=== PATIENT | male | born 1985 | race Caucasian/White ===

== ENCOUNTER 2023-10-20 10:09 | Outpatient (AMB) | payer OTHER, SELFPAY ==
--- NOTE | 2023-10-20 10:13 | AM.OFFWIN_ITS ---
Intake Vital Signs 10/20/23 10:18 Height 6 ft 2 in Weight 332 lb 4 oz BMI 42.7 BP 130/84 Blood Pressure Location Lt brachial Position Sitting Pulse 85 Pulse Source Pulse Oximeter Pulse Oximetry (%) 95 Oxygen Delivery Method Room Air Intake Visit Reasons: [place] eye, covid + 10/18/23 Intake Note: Patient is here today for pink eye in both eyes and covid positive on 10/18/23. Symptoms are sore throats, cough, congestion, running nose. No fever, chills or body aches. OTC tired with little relief. Patient Tobacco Use Status: Never used Tobacco Behavioral Health Aide Required: No Leader Writer: Not Required per policy Accompanied by: Self / Same As Patient Allergies No Known Allergies Allergy (Verified 10/20/23 10:25) Medication List - Last Reconciled 10/20/23 [facility] No Known Home Meds Do you need a note to return to daycare/school/sports/work: No HPI HPI Comments History of Present Illness Details Here today with complaints redness bilat eyes in the setting of COVID. Reports that tested positive for COVID yesterday. His symptoms include severe nasal congestion. Yesterday's started with the redness in his eyes associated with mucopurulent drainage. The eyes are not itchy. He reports that the drainage does make his vision blurry however no other visual disturbances. He feels so congested like the discharge is coming out of his sinuses. He did slade at the eyes with an bsec-qop-fcmiigg red eye eye drop. Denies any high-risk chronic medical conditions [facility] Social History Patient Tobacco Use Status: Never used Tobacco Review of Systems Const All systems reviewed & are unremarkable except as noted in HPI and below Physical Exam Vital Signs: Last Vital Signs Pulse 85 10/20/23 10:18 BP 130/84 10/20/23 10:18 Pulse Ox 95 10/20/23 10:18 Oxygen Delivery Method Room Air 10/20/23 10:18 BMI result Body Mass Index 42.7 Const Other: Awake alert oriented, mildly ill-appearing however in no acute distress Conjunctiva diffusely injected bilat, no photophobia, mucopurulent drainage bilat Nasal congestion Speaking in full sentences Assessment & Plan Assessment & Plan (1) COVID-19: Code(s): U07.1 - COVID-19 Plan: Isolation and Precautions for People with COVID-19 Updated January 19, 2023 If you were exposed to COVID-19, you should start taking precautions. Isolation and Exposure If you have COVID-19, you can spread the virus to others. There are precautions you can take to prevent spreading it to others: isolation, masking, and avoiding contact with people who are at high risk of getting very sick. Isolation is used to separate people with confirmed or suspected COVID-19 from those without COVID-19. These recommendations do not change based on COVID-19 hospital admission levels. If you have COVID-19, also see additional information on treatments that may be available to you. This information is intended for a general audience. Healthcare professionals should see Ending Isolation and Precautions for People with COVID-19. This [facility] guidance is meant to supplement?not replace?any federal, state, local, territorial, or [place] health and safety laws, rules, and regulations. For Healthcare Professionals: Ending Isolation and Precautions for People with COVID-19 When to Isolate Regardless of vaccination status, you should isolate from others when you have COVID-19. You should also isolate if you are sick and suspect that you have COVID-19 but do not yet have test results. If your results are positive, follow the full isolation recommendations below. If your results are negative, you can end your isolation. IF YOU TEST Negative You can end your isolation IF YOU TEST Positive Follow the full isolation recommendations below When you have COVID-19, isolation is counted in days, as follows: If you had no symptoms Day 0 is the day you were tested (not the day you received your positive test result) Day 1 is the first full day following the day you were tested If you develop symptoms within 10 days of when you were tested, the clock restarts at day 0 on the day of symptom onset If you had symptoms Day 0 of isolation is the day of symptom onset, regardless of when you tested positive Day 1 is the first full day after the day your symptoms started Isolation If you test positive for COVID-19, stay home for at least 5 days and isolate from others in your home. You are likely most infectious during these first 5 days. Wear a high-quality mask if you must be around others at home and in public. Do not go places where you are unable to wear a mask. For travel guidance, see CDC?s Travel webpage. Do not travel. Stay home and separate from others as much as possible. Use a separate bathroom, if possible. Take steps to improve ventilation at home, if possible. Don?t share personal household items, like cups, towels, and utensils. Monitor your symptoms. If you have an emergency warning sign (like trouble breathing), seek emergency medical care immediately. Learn more about what to do if you have COVID-19. Ending Isolation End isolation based on how serious your COVID-19 symptoms were. Loss of taste and smell may persist for weeks or months after recovery and need not delay the end of isolation. If you had no symptoms You may end isolation after day 5. If you had symptoms and: Your symptoms are improving You may end isolation after day 5 if: You are fever-free for 24 hours (without the use of fever-reducing medication). Your symptoms are not improving Continue to isolate until: You are fever-free for 24 hours (without the use of fever-reducing medication). Your symptoms are improving. 1 If you had symptoms and had: Moderate illness (you experienced shortness of breath or had difficulty breathing) You need to isolate through day 10. Severe illness (you were hospitalized) or have a weakened immune system You need to isolate through day 10. Consult your doctor before ending isolation. Ending isolation without a viral test may not be an option for you. If you are unsure if your symptoms are moderate or severe or if you have a weakened immune system, talk to a healthcare provider for further guidance. Regardless of when you end isolation Until at least day 11: Avoid being around people who are more likely to get very sick from COVID-19. Remember to wear a high-quality mask when indoors around others at home and in public. Do not go places where you are unable to wear a mask until you are able to discontinue masking (see below). For travel guidance, see CDC?s Travel webpage. Removing Your Mask After you have ended isolation, when you are feeling better (no fever without th e use of fever-reducing medications and symptoms improving), Wear your mask through day 10. OR If you have access to antigen tests, you should consider using them. With two sequential negative tests 48 hours apart, you may remove your mask sooner than day 10. Note: If your antigen test results1 are positive, you may still be infectious. You should continue wearing a mask and wait at least 48 hours before taking another test. Continue taking antigen tests at least 48 hours apart until you have two sequential negative results. This may mean you need to continue wearing a mask and testing beyond day 10. After you have ended isolation, if your COVID-19 symptoms recur or worsen, restart your isolation at day 0. Talk to a healthcare provider if you have questions about your symptoms or when to end isolation. [1] As noted in the Food and Drug Administration labeling for authorized vbgt-upu-tgtxcqx antigen tests, negative test results do not rule out SARS-CoV-2 infection and should not be used as the sole basis for treatment or patient management decisions, including infection control decisions. Last Updated January 19, 2023 (2) Conjunctivitis due to COVID-19: Code(s): U07.1 - COVID-19; B30.8 - Other viral conjunctivitis Plan: . Medications: New azithromycin For 250 mg dose pack: take 500 mg today (day 1), then 250 mg for 4 days (days 2-5) PO 6 tabs 0RF 5 days polymyxin B sulf-trimethoprim 10,000 unit- 1 mg/mL APPLY TO BOTH EYES while awake; do not exceed 6 doses in 24 hours 1 drp ophthalmic (eye) QID 10 mL 0RF 5 days Coding Level of Care Code Est Pt Level 4 (73702) Diagnoses COVID-19 U07.1 Conjunctivitis due to COVID-19 U07.1; B30.8 Time Spent (min) 30
[2023-10-20 10:18] VITALS: BP 130/84; PULSE 85; O2SAT 95; BMI 42.7
== END 2023-10-20 14:16 | disposition home or self-care (01) ==
PROVIDERS: Visit Provider Nurse Practitioner Family
DX: U07.1 COVID-19 (principal); B30.8 Other viral conjunctivitis
CPT/HCPCS: 99214

== ENCOUNTER 2024-02-01 15:26 | Outpatient (AMB) | payer OTHER, SELFPAY ==
[2024-02-01 15:48] VITALS: BP 124/74; PULSE 66; O2SAT 97; BMI 41.3
--- NOTE | 2024-02-01 15:48 | A.OFFPC_ITS ---
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 Allergies No Known Allergies Allergy (Verified 02/01/24 15:51) Tobacco use date assessed: 02/01/24 Dental Screening Dental Screen Date: 02/01/24 Did you have a dental visit in the last 12 months?: Yes Did you have a dental problem in the last 6 months where you did not have access to dental care?: No Was dental information given to patient?: Patient has dentist HPI Continuous Improvement Director Request PE HPI Details New patient Prior PCP:? No pcp in years Last office visit/CPE: Acute issue(s): ?Sleep Apnea -Notes fatigue, daytime sleepiness. -Also notes holding his breath while he sleeps. Cough -A cough the past couple days. PMHx: Difficulty concentrating PFSH Medical History (Updated 02/01/24 @ 16:14 by Donal Smith) Acute eczema Surgical History (Updated 02/01/24 @ 15:55 by Tali Martin CMA) No pertinent past surgical history Family History (Updated 02/01/24 @ 15:56 by Tali Martin CMA) Father Substance abuse in family Social History (Updated 02/01/24 @ 15:58 by Tali Martin CMA) Household Members: Family Both parents involved: No Caregiver staying overnight: No Housing: Apartment Are you a primary pet care assistant to a significant other at home: Yes Do you presently have visiting nurse or other home services: Yes 75 years or older and lives alone: No Alcohol intake: never Patient Tobacco Use Status: Never used Tobacco e-Cigarette/Vaping Use: Never Used Special ladarius needs: No service: No Current occupational status: employed 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 1. Little interest or pleasure in doing things: not at all 2. Feeling down, depressed, or hopeless: not at all 3. Trouble falling or staying asleep, or sleeping too much: not at all 4. Feeling tired or having little energy: more than half the days 5. Poor appetite or overeating: not at all 6. Feeling bad about yourself - or that you are a failure or have let yourself o r your family down: not at all 7. Trouble concentrating on things, such as reading the newspaper or watching television: not at all 8. Moving or speaking so slowly that other people could have noticed. Or the opposite - being so fidgety or restless that you have been moving around a lot more than usual: not at all 9. Thoughts that you would be better off or of hurting yourself in some way: not at all Total score: 2 Depression Screening Interpretation: Negative Depression Screening Done: Yes Source: Developed by Drs. Sabas Barnard, Dayana Chiang, Charles Jonas and colleagues, with an educational salma from [employer]. Thrive Questionnaire Date Thrive assessed: 02/01/24 I am a: Patient What is your living situation today?: I have a steady place to live Within the past 12 months, did the food you bought not last and you didn't have the money to get more?: Never true Within the past 12 months, did you worry whether your food would run out before you got money to buy more?: Never true Do you have trouble paying for medicines?: No Do you have trouble getting transportation to medical appointments?: No Do you have trouble paying your heating and electricity bill?: No Do you have trouble taking care of your child, family member or friend?: No Do you have trouble with day-to-day activities such as bathing, preparing meals, shopping, managing finances, etc.?: No Are you currently unemployed and looking for a job?: No Are you interested in more education?: No THRIVE Score: 0 YOVANY-7 AMB Questionnaire YOVANY-7 Date YOVANY - 7 assessed: 02/01/24 Feeling nervous, anxious, or on edge: 0 = Not at all Not being able to stop or control worryin = Not at all Worrying too much about different things: 0 = Not at all Trouble relaxin = Not at all Being so restless that it is hard to sit still: 0 = Not at all Becoming easily annoyed or irritable: 0 = Not at all Feeling afraid as if something awful might happen: 0 = Not at all Total YOVANY-7 score (0-4 normal; 5-9 mild; 10-14 moderate; 15-21 severe): 0 Source: Developed by Drs. Sabas Barnard, Dayana Chiang, Charles Jonas and colleagues, with an educational salma from [employer]. Review of Systems Const Denies chills, Denies fatigue, Denies fever(s), Denies headache(s) and Denies weakness ENT Denies dizziness and Denies headache(s) Card Denies chest pain, Denies lightheadedness, Denies dyspnea and Denies other (Palpitations) Resp Reports cough, Denies dyspnea, Denies wheezing and Denies other ( shortness of breath) Musc Denies numbness and Denies tingling Neuro Denies dizziness, Denies headache(s), Denies numbness, Denies tingling, Denies paresthesias and Denies weakness Psych Denies anxiety and Denies depression Endo Denies fatigue Aller/Immun Denies wheezing Physical exam (Primary Care) Vital Signs: Last Vital Signs Pulse 66 02/01/24 15:48 BP 124/74 02/01/24 15:48 Pulse Ox 97 02/01/24 15:48 Oxygen Delivery Method Room Air 02/01/24 15:48 BMI result Body Mass Index 41.3 Tobacco/Smoking Status: Tobacco use Status Tobacco use date assessed 02/01/24 02/01/24 16:01 Patient Tobacco Use Status Never used Tobacco 02/01/24 16:01 e-Cigarette/Vaping Use Never Used 02/01/24 16:01 PHQ-9: PHQ-9 Score PHQ-9: Total score 2 02/01/24 16:05 Depression Screening Interpretation: Negative Thrive Assessment: Date of Thrive Assessment Date Thrive assessed 02/01/24 02/01/24 16:01 Const General: no acute distress and well developed Nutritional Appearance: obese morbidly obese Orientation/consciousness: patient oriented x3 HENMT Head: Yes normocephalic and Yes atraumatic Eyes General: appearance normal, both eyes and all related structures Pupils: Equal, round and reactive pupils present EOM: EOMs intact bilaterally Resp Other: Squeaking at bottom of lungs Effort & Inspection: normal respiratory effort Cardio Rate: regular rate Rhythm: regular rhythm Heart sounds: S1 normal heart sound present, S2 normal heart sound present, no gallops, no murmurs and no rubs Neuro General: patient oriented x3 and gait normal Cranial nerves: Yes Equal, round and reactive pupils present Psych Affect: normal affect Assessment and Plan Assessment & Plan (1) Laboratory examination ordered as part of a complete physical examination: Code(s): Z00.00 - Encounter for general adult medical examination without abnormal findings (2) Sleep apnea: Code(s): G47.30 - Sleep apnea, unspecified Plan: Unrestful?sleep?with?patient?awakening?gasping/holding?his?breath, hyper?somnolence?at?work?and?fatigue.??Also?difficulty?concentrating Referred?to?Sleep?Medicine (3) Cough: Code(s): R05.9 - Cough, unspecified Plan: Patient?has?kids?have?had?a?cold?or?viral?illness?any?suspects?that?he?had?a?bro nchitis?since?the?weekend This?seems?to?be?much?better?now?and?continues?to?get?better Expect?this?should?resolve?on?its?own Call?or?return?to?office?sooner?if?not?improving?or?worsens (4) Difficulty concentrating: Code(s): R41.840 - Attention and concentration deficit Plan: Patient?says?he?had?a?diagnosis?of?ADHD?but?I?do?not?have?any?documentation?of?t his. Asked?for?records?regard ing?this?but?he?says?he?would?have?difficulty?getting?them Will?make?a?referral?to?neuropsychiatry Orders: Orders Complete Blood Count Auto Diff Today Z00.00 - Encounter for general adult medical examination without abnormal findings TSH reflex Free T4 Today Z00.00 - Encounter for general adult medical examination without abnormal findings Comprehensive [place]. Panel Fast Today Z00.00 - Encounter for general adult medical examination without abnormal findings Lipid Panel Today Z00.00 - Encounter for general adult medical examination without abnormal findings Microalbumin, Random (w Creat) Today I10 - Essential (primary) hypertension UA and rflx microscopic Today Z00.00 - Encounter for general adult medical examination without abnormal findings Referrals Sleep Medicine Referral G47.30 - Sleep apnea, unspecified Neuropsychiatry Referral R41.840 - Attention and concentration deficit Coding Level of Care Code New Pt Level 3 (51109) Diagnoses Laboratory examination ordered as part of a complete physical examination Z00.00 Sleep apnea G47.30 Cough R05.9 Difficulty concentrating R41.840
== END 2024-02-01 16:49 | disposition home or self-care (01) ==
LOC: HO.HMGFM 15:27
PROVIDERS: Visit Provider Family Medicine
DX: G47.30 Sleep apnea, unspecified (principal); R05.9 Cough, unspecified; R41.840 Attention and concentration deficit
CPT/HCPCS: 99213

== ENCOUNTER 2024-06-12 13:35 | Outpatient (AMB) | payer MEDICAID, SELFPAY ==
--- NOTE | 2024-06-12 13:36 | MHC.OFFVIS ---
Vital Signs 06/12/24 13:37 Height 6 ft 2 in Weight 332 lb 3 oz BMI 42.6 BP 130/82 Blood Pressure Location Rt brachial Position Sitting Respiration 17 Pulse 71 Pulse Source Pulse Oximeter Pulse Oximetry (%) 97 Oxygen Delivery Method Room Air Intake Visit Reasons: 01/31LVM+let INP-XIN Intake Note: Pt presents for new pt consultation for sleep disturbances. He snores and gasps for air during sleep. Silk Blocker Required: No Allergies No Known Allergies Allergy (Verified 06/12/24 13:36) Medication List - Last Reconciled 06/12/24 by BERKLEY Jones No Known Home Meds HPI Comments Details: 38-yr-old male presents for new in-person patient visit for sleep consultation. PMH: ADHD- not currently on tx. Patient reports he has has had excessive daytime sleepiness for a number of years, though denies excess sleepiness in childhood. He finds himself easily falling asleep when inactive. In the past, when he had to drive for work, he would doze off while driving but no longer drives for work. He now woks from home, and can fall asleep during meetings, when talking with someone, and even at a red light when driving. Pt states he has not had a physical or labs in a long time. He just established care w/a PCP- basic lab orders in place by PCP and is scheduled for a physical in Aug. Both his parents snore- but no known XIN dx. Sleep questionnaire: Have you ever been diagnosed with a sleep disorder? No Have you ever had a sleep study in the past? No Have you ever been treated for a sleep disorder? No Do you take medications for a sleep disorder? Sometimes may use a melatonin- in hopes it will make his sleep better. Do you have difficulty initiating sleep? No Do you have difficulty maintaining sleep? No Do you wake up tired? Yes Do you have daytime tiredness or fatigue? Yes Do you easily fall asleep when inactive? Yes Do you snore? yes Do you wake up gasping at night? at times Do you have episodes of apneas? denies Do you have episodes of nocturnal chest pain or dyspnea? denies Do you have bruxism? sometimes, can happen during the day as well. has had an epsiode where he yawnwed and it felt like his lower jaw was pulled/stuck open. If yes, do you wear a mouth guard when sleeping? no Do you have headaches upon awakening? denies Do you wake up with dry mouth or throat? at times Do you have GERD? only if he eats something bad . Do you have nocturia? No Do you have nocturnal leg cramps? No usual leg cramps. Do you have symptoms of restless legs? prone to being jittery- attributes to his ADHD s/s. Do you act out your dreams? denies Do you have sleep paralysis? Denies Do you have drop attacks? denies Do you ever have hypnogenic hallucinations? denies Do you dream easily? yes, but denies early onset REM. Hypersomnolence questionnaire: Have you ever had episodes of sudden weakness? denies Have you ever had episodes of sudden weakness associated with strong emotions? denies Sleep hygiene questionnaire: What is your usual sleep routine? Usual bedtime is at 11pm-12am; Usual wake-up time is at 7-7:30am. Do you take naps? unscheduled naps- he just falls asleep Is your sleep environment cool, dark, and quiet? yes Do you exercise? he is active w/ his kids- rides bikes, skateboards, plays basketball. Do you take caffeine or other stimulants? Large coffee in am and between 12-3pm. May use marijuana- helps minimize dreams. Rare alcohol use. Do you use electronics in bed? Yes but easily falls asleep What is your work schedule? 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 [facility] Medical History (Updated 06/12/24 @ 14:37 by BERKLEY Jones) Acute eczema Surgical History No pertinent past surgical history Family History Father Substance abuse in family Social History Household Members: Family Both parents involved: No Caregiver staying overnight: No Housing: Apartment Are you a primary career information specialist to a significant other at home: Yes Do you presently have visiting nurse or other home services: Yes 75 years or older and lives alone: No Alcohol intake: never Patient Tobacco Use Status: Never used Tobacco e-Cigarette/Vaping Use: Never Used Special ladarius needs: No service: No Current occupational status: employed 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 Cognitive needs: No Hearing needs: No Vision needs: No Physical Exam Vital Signs: Last Vital Signs Pulse 71 06/12/24 13:37 Resp 17 06/12/24 13:37 BP 130/82 06/12/24 13:37 Pulse Ox 97 06/12/24 13:37 Oxygen Delivery Method Room Air 06/12/24 13:37 BMI result Body Mass Index 42.6 Const General: no acute distress Orientation/consciousness: patient oriented x3 HEENT Other: Mallampati stage 3 Signs of mild lower teeth wearing Resp Effort & Inspection: normal respiratory effort and able to speak in complete sentences Auscultation: clear to auscultation bilaterally Cardio Rate: regular rate Rhythm: regular rhythm Neuro General: patient oriented x3 Psych Mental Status: mental status grossly normal Speech and movement: Clear speech present Attitude: cooperative Assessment & Plan Assessment & Plan (1) Hypersomnia: Code(s): G47.10 - Hypersomnia, unspecified Category: Medical (2) Snoring: Code(s): R06.83 - Snoring Category: Medical (3) 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 Labs as ordered by PCP. Will also check vit D level d/t profound hypersomnia. Try wearing an OTC mouth guard for bruxism- may help daytime bruxism s/s as well. Pt advsied to NOT drive long distances or when sleepy. Future considerations: In-lab PSG, MSLT. Pt to call with any worsening concerns or questions.\ Pt seen in c/w Dr Samantha Correa. Will follow-up upon review of above and patient to follow-up in clinic in 6 months or sooner prn. Orders: Orders RT home sleep study Today G47.10 - Hypersomnia, unspecified, R06.83 - Snoring Vitamin D 25-OH (D2 and D3) Today G47.10 - Hypersomnia, unspecified Coding Level of Care Code New Pt Level 4 (00698) Diagnoses Hypersomnia G47.10 Snoring R06.83 Bruxism F45.8 [place] Sleepiness Scale Questions Sitting and reading: high chance of dozing Watching TV: high chance of dozing Sitting inactive in a theater, movie etc.: high chance of dozing As a passenger in a car for an hour without break: high chance of dozing Lying down in the afternoon when circumstances permit: high chance of dozing Sitting and talking to someone: slight chance of dozing Sitting quietly after lunch without alcohol: high chance of dozing In a car, while stopped for a few minutes in the traffic: high chance of dozing ESS < 10: normal, ESS > 12: pathologic: 22
[2024-06-12 13:37] VITALS: BP 130/82; PULSE 71; RESP 17; O2SAT 97; BMI 42.6
== END 2024-06-12 14:19 | disposition home or self-care (01) ==
PROVIDERS: Visit Provider Nurse Practitioner Family
DX: G47.10 Hypersomnia, unspecified (principal); R06.83 Snoring; F45.8 Other somatoform disorders
CPT/HCPCS: 99204

== ENCOUNTER → 2024-06-12 13:35 | Outpatient (BNVA) | payer MEDICAID, SELFPAY | PROVIDERS: Visit Provider Nurse Practitioner Family | DX: G47.10 Hypersomnia, unspecified (principal); R06.83 Snoring; F45.8 Other somatoform disorders | CPT/HCPCS: 99212 ==

== ENCOUNTER → 2024-07-16 15:37 | Outpatient (REF) | payer OTHER, SELFPAY | LOC: HO.SL 15:37 | PROVIDERS: PCP Family Medicine; Visit Provider Nurse Practitioner Family | DX: G47.10 Hypersomnia, unspecified (principal); R06.83 Snoring | CPT/HCPCS: 95806 ==

== ENCOUNTER 2024-08-07 09:44 | Outpatient (REF) | payer OTHER, SELFPAY ==
[2024-08-07 11:24] LABS: Appearance Urine Clear; Color Urine Yellow; Glucose Urine UA Negative (Negative); Leukocyte Esterase Urine Negative (Negative); Nitrite Urine Negative (Negative); PH 5.5 (5.0-9.0); Urine Blood Negative (Negative); Urine Ketones Negative (Negative); Urine Protein Trace mg/dL (Neg-Trace)
[2024-08-07 11:31] LABS: MANUAL DIFF FLAG NO
[2024-08-07 11:38] LABS: Basophils Absolute Auto 0.1 X10*3/uL (0.0-0.2); Basophils Percent Auto 0.8 % (0-2); Eosinophils Absolute Auto 0.1 X10*3/uL (0.0-0.4); Eosinophils Percent Auto 1.6 % (0-4); Hematocrit 40.9 % (42.0-52.0); Hemoglobin 13.8 g/dl (14.0-18.0); Imm Gran Abs Auto 0.02 X10*3/uL (0.00-0.03); Imm Gran Pct Auto 0.3 % (0.0-0.4); Lymphocytes Absolute Auto 1.7 X10*3/uL (1.2-4.9); Lymphocytes Percent Auto 22.2 % (20-40); Mean Corpuscular HGB Conc 33.7 g/dl (31.0-36.0); Mean Corpuscular Hemoglobin 26.6 pg (27.0-33.0); Mean Corpuscular Volume 78.8 fL (80.0-98.0); Monocytes Absolute Auto 0.6 X10*3/uL (0.1-1.2); Monocytes Percent Auto 7.8 % (2-11); Neutrophils Absolute Auto 5.1 x10*3/uL (2.0-8.3); Neutrophils Percent Auto 67.3 % (45-73); Platelet Count 266 X10*3/uL (160-400); Red Blood Count 5.19 X10*6/uL (4.60-5.80); Red Cell Distribution Width 13.1 % (11.0-16.0); White Blood Count 7.5 X10*3/uL (4.8-10.8)
[2024-08-07 12:05] LABS: Creatinine Urine 231.09 mg/dL; Microalbum/Creatinine Ratio Ur 4.3 ug/mg cr (<30)
[2024-08-07 12:10] LABS: Alanine Aminotransferase 40 U/L (0-40); Albumin Level 4.2 g/dL (3.5-5.0); Alkaline Phosphatase 64 U/L (39-117); Anion Gap 12 (12-20); Aspartate Amino Transferase 29 U/L (5-37); Bilirubin Total 0.4 mg/dL (0.0-1.0); Blood Urea Nitrogen 11 mg/dL (9-16); Calcium 9.1 mg/dL (8.4-10.2); Carbon Dioxide 26 mmol/L (22-29); Chloride 107 mmol/L (96-108); Cholesterol 159 mg/dL (<200); Estimated Glomerular Filt Rate > 60; Glucose Fasting 109 mg/dL (60-99); HDL Cholesterol 37 mg/dL (>40); LDL Cholesterol Calculated 102 mg/dL (<100); Potassium 4.2 mmol/L (3.3-5.1); Sodium 141 mmol/L (135-145); TSH reflex Free T4 2.34 uIU/mL (0.32-4.0); Triglycerides 103 mg/dL (<150)
[2024-08-12 15:23] LABS: Vitamin D 25-OH, D2 <4 ng/mL; Vitamin D 25-OH, D3 21 ng/mL; Vitamin D 25-OH, Total 21 ng/mL (30-100)
== END 2024-08-07 09:45 | disposition home or self-care (01) ==
LOC: HO.WFDLDS 09:44
PROVIDERS: Referring Provider Nurse Practitioner Family; Visit Provider Family Medicine
DX: Z00.00 Encounter for general adult medical examination without abnormal findings (principal); I10 Essential (primary) hypertension; G47.10 Hypersomnia, unspecified
CPT/HCPCS: 36415; 80053; 80061; 81003; 82043; 82306; 82570; 84443; 85025

== ENCOUNTER 2024-08-12 08:01 | Outpatient (AMB) | payer OTHER, SELFPAY ==
--- NOTE | 2024-08-12 08:03 | A.OFFPC_ITS ---
Vital Signs 08/12/24 08:08 08/12/24 08:29 Height 6 ft 2 in Weight 331 lb BMI 42.5 BP 144/79 H 132/76 Blood Pressure Location Lt brachial Lt brachial Position Sitting Sitting Respiration 13 Pulse 73 Pulse Source Pulse Oximeter Pulse Oximetry (%) 97 Oxygen Delivery Method Room Air Intake Visit Reasons: Annual PE Intake Note: annual physical [employer] Required: No Allergies No Known Allergies Allergy (Verified 08/12/24 08:27) Medication List - Last Reconciled 08/12/24 by ADRIANE Tavera No Known Home Meds Tobacco use date assessed: 02/01/24 Dental Screening Dental Screen Date: 02/01/24 HPI HPI Comments History of Present Illness Details 38 y/o M with prediabetes, obesity, anem ia, self reports of ADHD Here today for CPE Labs 08/07/24 anemia, fasting glucose 109, Vit d pending, otherwise normal He denies any overt bleeding sleep study 08/05/24 inconclusive, recommend in lab this is being managed by sleep medicine Did not get appt w/ [facility] yet, info provided to him from 02/2024 referral; would like to get back on meds for ADHD BMI >40, hard time losing weight, as active as can be, feels eating healthy diet, now having joint pains r/t gain. 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 1. Little interest or pleasure in doing things: not at all 2. Feeling down, depressed, or hopeless: not at all 3. Trouble falling or staying asleep, or sleeping too much: not at all 4. Feeling tired or having little energy: several days 5. Poor appetite or overeating: not at all 6. Feeling bad about yourself - or that you are a failure or have let yourself or your family down: not at all 7. Trouble concentrating on things, such as reading the newspaper or watching television: not at all 8. Moving or speaking so slowly that other people could have noticed. Or the opposite - being so fidgety or restless that you have been moving around a lot more than usual: not at all 9. Thoughts that you would be better off or of hurting yourself in some way: not at all Total score: 1 Depression Screening Interpretation: Negative Depression Screening Done: Yes 81837 - PHQ-9 Billing: Yes Source: Developed by Drs. Sabas Barnard, Dayana Chiang, Charles Jonas and colleagues, with an educational salma from [email or web address]. Thrive Questionnaire Date Thrive assessed: 08/12/24 I am a: Patient What is your living situation today?: I have a steady place to live Within the past 12 months, did the food you bought not last and you didn't have the money to get more?: Never true Within the past 12 months, did you worry whether your food would run out before you got money to buy more?: Never true Do you have trouble paying for medicines?: No Do you have trouble getting transportation to medical appointments?: No Do you have trouble paying your heating and electricity bill?: No Do you have trouble taking care of your child, family member or friend?: No Do you have trouble with day-to-day activities such as bathing, preparing meals, shopping, managing finances, etc.?: No Are you currently unemployed and looking for a job?: No Are you interested in more education?: No Please select the resources that you would like help with: None Currently or been in a relationship where the following occur: No concerns reported THRIVE Score: 0 AUDIT C Alcohol Use Questionnaire (AUDIT-C) 1. How often do you have a drink containing alcohol?: Monthly or less 2. How many drinks containing alcohol do you have on a typical day when you are drinking?: 1 or 2 3. How often do you have six or more drinks on one occasion?: Never Total Score: 1 Score Reviewed/Action Taken: Yes YOVANY-7 AMB Questionnaire YOVANY-7 Date YOVANY - 7 assessed: 08/12/24 Feeling nervous, anxious, or on edge: 0 = Not at all Not being able to stop or control worryin = Not at all Worrying too much about different things: 0 = Not at all Trouble relaxin = Not at all Being so restless that it is hard to sit still: 0 = Not at all Becoming easily annoyed or irritable: 0 = Not at all Feeling afraid as if something awful might happen: 0 = Not at all Total YOVANY-7 score (0-4 normal; 5-9 mild; 10-14 moderate; 15-21 severe): 0 Source: Developed by Drs. Sabas Barnard, Dayana Chiang, Charles Jonas and colleagues, with an educational salma from [email or web address]. YOVANY-7 Assessment Billing YOVANY-7 Assessment Tool: YOVANY-7 Assessment 65931 Review of Systems Const Details: Constitutional: Denies fever. Skin: Denies rash. Eye: Denies eye pain. ENMT: Denies sore throat and nasal congestion. Respiratory: Denies shortness of breath and cough. Gastrointestinal: Denies nausea, vomiting or abdominal pain. Cardiovascular: Denies chest pain and syncope. Genitourinary: Denies dysuria. Musculoskeletal: Denies back pain and extremity pain. Neurologic: Denies headaches, confusion, and weakness. Psychiatric: Denies suicidal thoughts and substance abuse. Allergy/ Immunologic: Denies impaired immunity. Physical exam (Primary Care) Vital Signs: Last Vital Signs Pulse 73 08/12/24 08:08 Resp 13 08/12/24 08:08 BP 144/79 H 08/12/24 08:08 Pulse Ox 97 08/12/24 08:08 Oxygen Delivery Method Room Air 08/12/24 08:08 BMI result Body Mass Index 42.5 BMI Assessment/Plan discussion: High BMI High, discussed plan: lifestyle and physical activity Tobacco/Smoking Status: Tobacco use Status Tobacco use date assessed 02/01/24 08/12/24 08:05 Patient Tobacco Use Status Never used Tobacco 08/12/24 08:05 e-Cigarette/Vaping Use Never Used 08/12/24 08:05 PHQ-9: PHQ-9 Score PHQ-9: Total score 1 08/12/24 08:14 Depression Screening Interpretation: Negative Thrive Assessment: Date of Thrive Assessment Date Thrive assessed 08/12/24 08/12/24 08:05 Currently or been in a relationship where the following occur: No concerns reported Const Other: General: Well developed, well nourished, in no acute distress. Appears stated age. Head: Normocephalic, atraumatic. Eyes: Pupils are equal, round and reactive to light and accommodation. Conjunctivae are clear. Vision grossly normal. Ears: TMs clear AU, EACS WNL Nose: Patent, without discharge. Mouth: There are no ulcers or lesions noted. No inflammation, no post nasal drip, no plaques nor exudates. Neck: Supple, no adenopathy or thyromegaly. Lungs: Clear to auscultation bilaterally. No rales, rhonchi or wheeze noted. Good air flow in all castro. Heart: Regular rate and rhythm. No murmurs, click, rubs or gallops are noted. Abdomen: Bowel sounds present in all quadrants. The abdomen is soft, nontender, with no masses or organomegaly noted. No hernias are noted. Musculoskeletal: Joints are nontender, without swelling, redness, or effusions. Range of motion is observed to be normal. Pulses: Peripheral pulses are equal and palpable bilaterally. Extremities: No clubbing, cyanosis nor edema is noted. Neurologic: Gait and station normal. Cranial Nerves 2-12 intact. Motor strength grossly symmetrical and intact. No sensory loss. Balance normal. Skin: No rashes, ulcers, or lesions noted. Turgor is good. Skin color is good. Hair and nails are without abnormalities. Psych: Normal eye contact, affect and mood appropriate, and normal interactions. Patient is alert and appropriate to context. Results AMB Hemoglobin A1c AMB Hemoglobin A1c 6.0 % Last Edit by Jose nAtonio Bhakta MA on 08/12/24 08:21 Coding Level of Care Code Est Pt Prev Care 18-39y([id number]) Diagnoses Encounter for general adult medical examination without abnormal findings Z00.00 Class 3 obesity E66.813 Prediabetes R73.03 ADHD (attention deficit hyperactivity disorder) evaluation Z13.39 Mild anemia D64.9 Additional Codes YOVANY-7 Assessment Billing - YOVANY-7 Assessment Tool: YOVANY-7 Assessment 26309 ([id number]) PHQ-9 - 18144 - PHQ-9 Billing: Yes ([id number]) Assessment & Plan Assessment & Plan (1) Encounter for general adult medical examination without abnormal findings: Code(s): Z00.00 - Encounter for general adult medical examination without abnormal findings (2) Class 3 obesity: Code(s): E66.813 - Obesity, class 3 Category: Medical (3) Prediabetes: Code(s): R73.03 - Prediabetes Category: Medical (4) ADHD (attention deficit hyperactivity disorder) evaluation: Code(s): Z13.39 - Encounter for screening examination for other mental health and behavioral disorders Category: Medical (5) Mild anemia: Code(s): D64.9 - Anemia, unspecified Category: Medical Plan . Orders: Orders AMB Hemoglobin A1c Today Z13.9 - Encounter for screening, unspecified Complete Blood Count no Diff 6 Months D64.9 - Anemia, unspecified, E66.813 - Ob esity, class 3, R73.03 - Prediabetes Vitamin B12 and Folate 6 Months D64.9 - Anemia, unspecified, E66.813 - Obesity, class 3, R73.03 - Prediabetes Comprehensive Met. Panel 6 Months D64.9 - Anemia, unspecified, E66.813 - Obesity, class 3, R73.03 - Prediabetes IRON PROFILE 6 Months D64.9 - Anemia, unspecified, E66.813 - Obesity, class 3, R73.03 - Prediabetes Hemoglobin A1c 6 Months D64.9 - Anemia, unspecified, E66.813 - Obesity, class 3, R73.03 - Prediabetes Referrals Bariatric Surgery Referral E66.813 - Obesity, class 3, R73.03 - Prediabetes Patient Instructions: Health screenings for men ages 40 to 64 You should visit your health care provider regularly, even if you feel healthy. The purpose of these visits is to: Screen for medical issues Assess your risk for future medical problems Encourage a healthy lifestyle Update vaccinations and other preventive care services Help you get to know your provider in case of an illness Information Even if you feel fine, you should still see your provider for regular checkups. These visits can help you avoid problems in the future. For example, the only way to find out if you have high blood pressure is to have it checked regularly. High blood sugar and high cholesterol level also may not have any symptoms in the early stages. Simple blood tests can check for these conditions. There are specific times when you should see your provider or receive specific health screenings. The [place] Preventive Services Task Force publishes a list of recommended screenings. Below are screening guidelines for men ages 40 to 64. BLOOD PRESSURE SCREENING Have your blood pressure checked at least once every year. Watch for blood pressure screenings in your area. Ask your provider if you can stop in to have your blood pressure checked. Ask your provider if you need your blood pressure checked more often if: You have diabetes, heart disease, kidney problems, or are overweight or have certain other health conditions You have a first-degree relative with high blood pressure You are Black Your blood pressure top number is from 120 to 129 mm Hg, or the bottom number is from 70 to 79 mm Hg If the top number is 130 mm Hg or greater or the bottom number is 80 mm Hg or greater, this is considered stage 1 hypertension. Schedule an appointment with your provider to learn how you can lower your blood pressure. Effects of age on blood pressure CHOLESTEROL SCREENING Cholesterol screening should begin at age 35 for men with no known risk factors for coronary heart disease. Repeat cholesterol screening should take place: Every 5 years for men with normal cholesterol levels More often if changes occur in lifestyle (including weight gain and diet) More often if you have diabetes, heart disease, kidney problems, or certain other conditions COLORECTAL CANCER SCREENING If you are under age 45, talk to your provider about getting screened. You may need to be screened if you have a strong family history of colon cancer or polyps. Screening may also be considered if you have risk factors such as a history of inflammatory bowel disease or polyps. If you are age 45 to 75, you should be screened for colorectal cancer. There are several screening tests available: A stool-based fecal occult blood (gFOBT) or fecal immunochemical test (FIT) every year A stool sDNA test every 1 to 3 years Flexible sigmoidoscopy every 5 years or every 10 years with stool testing FIT done every year CT colonography (virtual colonoscopy) every 5 years Colonoscopy every 10 years You may need a colonoscopy more often if you have risk factors for colorectal cancer, such as: Ulcerative colitis A personal or family history of colorectal cancer A history of growths in your colon called adenomatous polyps DENTAL EXAM Go to the dentist once or twice every year for an exam and cleaning. Your dentist will evaluate if you have a need for more frequent visits. DIABETES SCREENING All adults who do not have risk factors for diabetes should be screened starting at age 35 and repeated every 3 years. If you have other risk factors for diabetes, such as a first degree relative with diabetes, overweight or obesity, high blood pressure, prediabetes, or a history of heart disease, you may be tested more often. If you are overweight and have other risk factors, such as high blood pressure and are planning to become , screening is recommended. EYE EXAM Have an eye exam every 2 to 4 years ages 40 to 54 and every 1 to 3 years ages 55 to 64. Your provider may recommend more frequent eye exams if you have vision problems or glaucoma risk. Have an eye exam that includes an examination of your retina (back of your eye) at least every year if you have diabetes. IMMUNIZATIONS Commonly needed vaccines include: Flu shot: get one every year COVID-19 vaccine: ask your provider what is best for you Tetanus-diphtheria and acellular pertussis (Tdap) vaccine: have as one of your tetanus-diphtheria vaccines if you did not receive it as an adolescent Tetanus-diphtheria: have a booster (or Tdap) every 10 years Varicella vaccine: receive 2 doses if you never had chickenpox or the varicella vaccine and were born in 1980 or after Hepatitis B vaccine: receive 2, 3, or 4 doses, depending on your exact circumstances, if you did not receive these as a child or adolescent, until age 59 Shingles (herpes zoster) vaccine: at or after age 50 Ask your provider if you should receive other immunizations, especially if you have certain medical conditions, such as diabetes or are at increased risk for some diseases such as pneumonia. INFECTIOUS DISEASE SCREENING Screening for hepatitis C: all adults ages 18 to 79 should get a one-time test for hepatitis C. Screening for human immunodeficiency virus (HIV): all people ages 15 to 65 should get a one-time test for HIV. Depending on your lifestyle and medical history, you may need to be screened for infections such as syphilis, chlamydia, and other infections. LUNG CANCER SCREENING You should have an annual screening for lung cancer with low-dose computed tomography (LDCT) if: You are age 50 to 80 years AND You have a 20 pack-year smoking history AND You currently smoke or have quit within the past 15 years OSTEOPOROSIS SCREENING If you are age 50 to 64 and have risk factors for osteoporosis, you should discuss screening with your provider. Risk factors can include long-term steroid use, low body weight, smoking, heavy alcohol use, having a fracture after age 50, or a family history of hip fracture or osteoporosis. Osteoporosis PHYSICAL EXAM All adults should visit their provider from time to time, even if they are healthy. The purpose of these visits is to: Screen for diseases Assess risk of future medical problems Encourage a healthy lifestyle Update vaccinations and other preventive care services Maintain a relationship with a provider in case of an illness Your height, weight, and body mass index (BMI) should be checked at every exam. During your exam, your provider may ask you about: Depression and anxiety Diet and exercise Alcohol and tobacco use Safety, such as use of seat belts and smoke detectors Your medicines and risk for interactions PROSTATE CANCER SCREENING If you're 55 through 69 years old, before having the test, talk to your provider about the pros and cons of having a PSA test. Ask about: Whether screening decreases your chance of dying from prostate cancer. Whether there is any harm from prostate cancer screening, such as side effects from testing or overtreatment of cancer when discovered. Whether you have a higher risk of prostate cancer than others. If you are age 55 or younger, screening is not generally recommended. You should talk with your provider about if you have a higher risk for prostate cancer. Risk factors include: Having a family history of prostate cancer (especially a brother or father) Being If you choose to be tested, the PSA blood test is repeated over time (yearly or less often), though the best frequency is not known. Prostate examinations are no longer routinely done on men with no symptoms. Prostate cancer SKIN EXAM Your provider may check your skin for signs of skin cancer, especially if you're at high risk. People at high risk include those who have had skin cancer before, have close relatives with skin cancer, or have a weakened immune system. TESTICULAR EXAM The [place] Preventive Services Task Force (USPSTF) now recommends against performing testicular self-exams. Doing testicular self-exams has been shown to have little to no benefit. Refer To [facility] [address] [place] [address] [address] [place] [address] Phone
[2024-08-12 08:08] VITALS: BP 144/79; PULSE 73; RESP 13; O2SAT 97; BMI 42.5
[2024-08-12 08:29] VITALS: BP 132/76
== END 2024-08-12 08:35 | disposition home or self-care (01) ==
PROVIDERS: PCP Nurse Practitioner Family; Visit Provider Nurse Practitioner Family
DX: Z00.00 Encounter for general adult medical examination without abnormal findings (principal); E66.813 Obesity, class 3; Z68.41 Body mass index [BMI] 40.0-44.9, adult; R73.03 Prediabetes; Z13.39 Encounter for screening examination for other mental health and behavioral disorders; D64.9 Anemia, unspecified

== ENCOUNTER → 2024-08-12 08:01 | Outpatient (BNVA) | payer OTHER, SELFPAY | PROVIDERS: PCP Nurse Practitioner Family; Visit Provider Nurse Practitioner Family | DX: Z00.00 Encounter for general adult medical examination without abnormal findings (principal); E66.813 Obesity, class 3; Z68.41 Body mass index [BMI] 40.0-44.9, adult; R73.03 Prediabetes; D64.9 Anemia, unspecified | CPT/HCPCS: 83036; 96127 ==

== ENCOUNTER 2024-08-28 08:38 | Outpatient (AMB) | payer OTHER, SELFPAY ==
--- NOTE | 2024-08-28 13:09 | A.OFFVIS_ITS ---
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 BMI 41.1 Allergies No Known Allergies Allergy (Verified 08/28/24 13:09) Medication List - Last Reconciled 08/28/24 by Jimmy Mayes MD cholecalciferol (vitamin D3) 1,250 mcg PO QWEEK 12 days HPI HPI TV ASSESSMENT NURSE SWL BMI 41.1: Details: Start time: 1.03pm, End time: 1.53pm I spent 45 minutes speaking with the patient on the phone plus an additional 5 minutes reviewing and updating records for a total of 50 minutes HPI Comments Details: Previous weight loss efforts: Self diets Wakes up: 7am, Sleeps: 11pm Breakfast: weekends at 11am (eggs, purdy, cheese) Lunch: 5/wk 1pm (sandwich or rice, beans and meat) Dinner: 6-8pm (rice, beans, meat) Snacks: 3-4pm (fruits: oranges, or chips), 8pm (sweets occasionally) Exercise: none Fluids: Coffee (2/wk with creamer and sugar), tea: none, soda: diet soda, juice: crystal light, ETOH: none PFSH Medical History (Updated 08/28/24 @ 13:11 by Jimmy Mayes MD) Morbid obesity Acute eczema Surgical History No pertinent past surgical history Family History Father Substance abuse in family Social History Household Members: Family Both parents involved: No Caregiver staying overnight: No Housing: Apartment Are you a primary acute care clinical nurse specialist to a significant other at home: Yes Do you presently have visiting nurse or other home services: Yes 75 years or older and lives alone: No Alcohol intake: never Patient Tobacco Use Status: Never used Tobacco e-Cigarette/Vaping Use: Never Used Special ladarius needs: No service: No Current occupational status: employed 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 Cognitive needs: No Hearing needs: No Vision needs: No Telehealth Telehealth Telehealth Platform: Telephone Location of provider rendering services: practice address Location of patient: address on file Patient Identification confirmed using: Name, : Yes Telehealth method: voice only Patient verbally consented to treatment: Yes Patient verbally consented to billing insurance company: Yes Patient informed of any privacy concerns related to visit: Yes Minutes spent on Phone/Video with Pt.: 50 Assessment & Plan Assessment & Plan (1) Morbid obesity: Code(s): E66.01 - Morbid (severe) obesity due to excess calories Category: Medical Plan: 1. Plan for lap sleeve gastrectomy. If diaphragmatic or ventral hernias are present at time of surgery, these will be repaired laparoscopically as well. Risks and complications were discussed in detail including possible conversion to an open procedure, anastomotic leak, bleeding requiring transfusion, small bowel obstruction, , DVT and pulmonary embolism, cardiac, or pulmonary complications, as care home complications such as anastomotic ulcer, insufficient weight loss and vitamin deficiencies. I emphasized the importance of close follow-up, adherence to instructions and good communication. 2. You will receive a link of our software lavon to generate an individualized nutritional and exercise plan specific for you. Please send me a screenshot of the plans you will generate Meal to include lean meat (beef, fish, pork, turkey, chicken), or rwandan yogurt, or egg whites, or beans with a salad with olive oil and fruits (berries, pears, apples, kiwi). Avoid salt, breads, potatoes, rice, pasta, desserts. 3. If you choose shakes, each shake would be drunk slowly, like coffee in a p eriod of 2 hours. 4. If you choose bars, cut each bar in 4 pieces and eat each piece in 30min to make each bar last 2 hours. 5. I emphasized the importance of measuring accurately the food portion and measure it when serving the food in plate 6. The meal portions include a specific number of forks of meat and salad. You always eat the meat portion but you can replace up to half of salad/vegetables portion with rice, potatoes or pasta, or a fruit if you like. The less you do it the better weight loss will be. 7. One full-size fork is what it can be scooped on the fork without falling aside and not what can be bit with the fork. Use regular forks like those you find in a typical restaurant. 8. Please send me weight measurements as soon as possible and then once a week. Always include your diet and exercise plan. 9. The best choice would be to purchase a stationary bike, elliptical or treadmill at home that can track calories. Let me know if you do so I can give you an exercise plan. 10. Goal is to lose at least 1.5-2lbs per week 12. Goal to lose 10% of your weight before surgery, which is about 32lbs. Ultimate weight goal: 288lbs before surgery 13. Please follow the diet plan exactly without any change. If you don't like something about the plan or you feel hungry you need to communicate with me so I can help you revise the plan. You should not change the plan yourself. 14. To be scheduled for EGD due to history of GERD. The possibility of biopsies was discussed. Patient needs to avoid use of NSAIDs and aspirin for 1 week prior to EGD. Risks of perforation and bleeding was discussed with the patient. This will be an outpatient procedure with IV sedation. Orders: Orders Insulin Today E66.01 - Morbid (severe) obesity due to excess calories, R73.03 - Prediabetes Hemoglobin A1c Today E66.01 - Morbid (severe) obesity due to excess calories, R73.03 - Prediabetes H Pylori Breath Test Today E66.01 - Morbid (severe) obesity due to excess calories, R73.03 - Prediabetes Complete Blood Count Auto Diff Today E66.01 - Morbid (severe) obesity due to excess calories, R73.03 - Prediabetes Vitamin A Today E66.01 - Morbid (severe) obesity due to excess calories, R73.03 - Prediabetes TSH reflex Free T4 Today E66.01 - Morbid (severe) obesity due to excess calories, R73.03 - Prediabetes Ferritin Today E66.01 - Morbid (severe) obesity due to excess calories, R73.03 - Prediabetes XR chest 2V Today E66.01 - Morbid (severe) obesity due to excess calories, R73.03 - Prediabetes ECG 12 lead EKG Today E66.01 - Morbid (severe) obesity due to excess calories, R73.03 - Prediabetes Lipid Panel Today E66.01 - Morbid (severe) obesity due to excess calories, R73.03 - Prediabetes IRON PROFILE Today E66.01 - Morbid (severe) obesity due to excess calories, R73.03 - Prediabetes Comprehensive Met. Panel Today E66.01 - Morbid (severe) obesity due to excess calories, R73.03 - Prediabetes Vitamin B12 and Folate Today E66.01 - Morbid (severe) obesity due to excess calories, R73.03 - Prediabetes Zinc Today E66.01 - Morbid (severe) obesity due to excess calories, R73.03 - Prediabetes C Reactive Protein Today E66.01 - Morbid (severe) obesity due to excess calories, R73.03 - Prediabetes Vitamin B1 Today E66.01 - Morbid (severe) obesity due to excess calories, R73.0 3 - Prediabetes Vitamin D 25-OH Total Today E66.01 - Morbid (severe) obesity due to excess calories, R73.03 - Prediabetes US abdomen comp w elastography Today E66.01 - Morbid (severe) obesity due to excess calories, R73.03 - Prediabetes FL upper GI w air Today E66.01 - Morbid (severe) obesity due to excess calories, R73.03 - Prediabetes Referrals Behavioral Health Referral E66.01 - Morbid (severe) obesity due to excess calories, R73.03 - Prediabetes Nutrition/Dietitian Referral E66.01 - Morbid (severe) obesity due to excess calories, R73.03 - Prediabetes
[2024-08-28 13:19] VITALS: BMI 41.1
== END 2024-08-28 13:54 | disposition home or self-care (01) ==
LOC: HO.HBS 08:38
PROVIDERS: PCP Nurse Practitioner Family; Visit Provider Surgery
DX: E66.813 Obesity, class 3 (principal); Z68.41 Body mass index [BMI] 40.0-44.9, adult
CPT/HCPCS: 99443

== ENCOUNTER → 2024-09-16 08:11 | Outpatient (AMB) | payer OTHER, SELFPAY ==
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
== END ==
PROVIDERS: PCP Nurse Practitioner Family; Visit Provider Counselor Mental Health
DX: F43.20 Adjustment disorder, unspecified (principal); Z72.4 Inappropriate diet and eating habits
CPT/HCPCS: 90837

== ENCOUNTER → 2024-09-16 08:11 | Outpatient (BNVA) | payer OTHER, SELFPAY | PROVIDERS: PCP Nurse Practitioner Family; Visit Provider Counselor Mental Health ==

== ENCOUNTER 2024-09-26 11:30 | Outpatient (AMB) | payer OTHER, SELFPAY ==
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
== END 2024-09-26 13:03 | disposition home or self-care (01) ==
LOC: HO.HBST 11:30
PROVIDERS: PCP Nurse Practitioner Family; Visit Provider Counselor Mental Health
DX: F43.20 Adjustment disorder, unspecified (principal); Z72.4 Inappropriate diet and eating habits
CPT/HCPCS: 90834

== ENCOUNTER 2024-10-03 09:12 | Outpatient (REF) | payer OTHER, SELFPAY ==
--- NOTE | ~2024-10-03 | US_ITS ---
EXAMINATION: US ABDOMEN COMPLETE WITH LIVER ELASTOGRAPHY HISTORY: E66.01 - Morbid (severe) obesity due to excess calories TECHNIQUE: Real-time grayscale ultrasound imaging of the abdomen was performed and images were reviewed. COMPARISON: There are no prior studies for comparison. FINDINGS: Liver: The liver is normal in size and demonstrates homogeneous echotexture. No focal mass or intrahepatic biliary ductal dilatation is identified. There is normal hepatopedal flow in the portal vein. Ultrasound elastography of the liver was performed with 10 separate measurements of the liver parenchyma with the patient in the supine position. Measurements were obtained approximately 2 cm below Antonio's capsule and perpendicular to the capsule. Images are of satisfactory quality. The median shear wave velocity is 1.27 m/s. The interquartile range/median (IQR/median) is 0.27. Gallbladder and biliary tree: The gallbladder is unremarkable, without evidence of calculi, wall thickening, or pericholecystic fluid. There is no sonographic Murcia sign. The common bile duct is normal in caliber measuring 5 mm. Kidneys: The right kidney measures 11.7 cm in length. The left kidney measures 12.6 cm in length. The kidneys are unremarkable, without evidence of masses, hydronephrosis, or calculi. Pancreas: The pancreatic head, neck, and body are unremarkable. The pancreatic tail is obscured by bowel gas. Spleen: The spleen is normal in size and contour, measuring 12.6 cm in length. Abdominal aorta and inferior vena cava: The visualized portions of the abdominal aorta and inferior vena cava are normal in caliber. There is no free fluid in the abdomen. US/US abdomen comp w elastography IMPRESSION: Unremarkable abdominal ultrasound. The median shear wave velocity is 1.27 m/s, corresponding to a median liver stiffness of 5.00 kPa. The IQR/median value is 0.27. This is indicative of a poor quality data set, and the estimated liver stiffness may be unreliable. Findings are indicative of a normal elastography value with a low likelihood of severe fibrosis or cirrhosis. REFERENCE: Society of Radiologists in Ultrasound Liver Stiffness Thresholds (2019): LIVER STIFFNESS THRESHOLDS: *Shear wave velocity less than 1.3 m/s (Liver Stiffness equal or less than 5 kPa): High probability of being normal. *Shear wave velocity less than 1.7 m/s (Liver Stiffness less than 9 kPa): In the absence of other known clinical signs, rules out compensated advanced chronic liver disease. *Shear wave velocity between 1.7-2.1 m/s (Liver Stiffness 9-13 kPa): Suggestive of compensated advanced chronic liver disease but need further test for confirmation. *Shear wave velocity between 2.1-2.4 m/s (Liver Stiffness 13-17 kPa): Rules in compensated advanced chronic liver disease. *Shear wave velocity greater than 2.4 m/s (Liver Stiffness over 17 kPa): Suggestive of clinically significant portal hypertension. QUALITY OF DATA SET: *IQR/Median value equal or less than 0.15 implies a quality data set. *IQR/Median value over 0.15 implies a poor quality data set. SIGNIFICANT CHANGE FROM PRIOR EXAM: Significant change if liver stiffness measurement is 10% or greater from prior exam. OTHER CONSIDERATIONS: The stage of liver fibrosis may be overestimated in the setting of acute hepatitis, liver inflammation, elevated liver function tests, hepatic vascular congestion, obstructive cholestasis, non-fasting state, and infiltrative diseases such as amyloidosis and lymphoma. In some patients with NAFLD, the liver stiffness thresholds for compensated advanced chronic liver disease may be lower. In causes other than viral hepatitis and NAFLD, liver stiffness thresholds are not well established. Electronically signed by: Sabas Du MD 10/03/2024 12:39 PM [facility]
--- NOTE | ~2024-10-03 | XR_ITS ---
EXAMINATION: XR CHEST 2 VIEWS HISTORY: E66.01 - Morbid (severe) obesity due to excess calories COMPARISON: There are no prior studies for comparison. FINDINGS: PA and lateral views of the chest are submitted. The lungs are expanded and clear. There is no pleural effusion, pneumothorax, or pulmonary vascular congestion. The heart is normal in size. The bones are intact. XR/XR chest 2V IMPRESSION: Normal examination of the chest. Electronically signed by: Sabas Du MD 10/03/2024 02:14 PM [facility]
--- NOTE | 2024-10-03 10:27 | ECG_ITS ---
Test Reason : MOR OBS Blood Pressure : */* mmHG Vent. Rate : 54 BPM Atrial Rate : 54 BPM P-R Int : 176 ms QRS Dur : 90 ms QT Int : 406 ms P-R-T Axes : 60 13 37 degrees QTcB Int : 385 ms Sinus bradycardia Otherwise normal ECG No previous ECGs available Referred By: Jimmy Mayes Electronically Signed By: HELEN CLEMENT MD
[2024-10-03 10:28] LABS: MANUAL DIFF FLAG NO
[2024-10-03 10:55] LABS: Estimated Average Glucose 117 mg/dL; Hemoglobin A1C 136.3431 umol/L; Hemoglobin A1c % 5.7 % (<6.0); Total Hemoglobin (HGBA1C) 3561.1066 umol/L
[2024-10-03 11:02] LABS: Basophils Absolute Auto 0.1 X10*3/uL (0.0-0.2); Basophils Percent Auto 0.7 % (0-2); Eosinophils Absolute Auto 0.2 X10*3/uL (0.0-0.4); Eosinophils Percent Auto 2.7 % (0-4); Hematocrit 41.6 % (42.0-52.0); Hemoglobin 13.8 g/dl (14.0-18.0); Imm Gran Abs Auto 0.02 X10*3/uL (0.00-0.03); Imm Gran Pct Auto 0.3 % (0.0-0.4); Lymphocytes Absolute Auto 1.6 X10*3/uL (1.2-4.9); Lymphocytes Percent Auto 24.3 % (20-40); Mean Corpuscular HGB Conc 33.2 g/dl (31.0-36.0); Mean Corpuscular Hemoglobin 26.3 pg (27.0-33.0); Mean Corpuscular Volume 79.4 fL (80.0-98.0); Mean Platelet Volume 10.4 fL (9.4-12.4); Monocytes Absolute Auto 0.5 X10*3/uL (0.1-1.2); Monocytes Percent Auto 8.1 % (2-11); Neutrophils Absolute Auto 4.3 x10*3/uL (2.0-8.3); Neutrophils Percent Auto 63.9 % (45-73); Platelet Count 285 X10*3/uL (160-400); Red Blood Count 5.24 X10*6/uL (4.60-5.80); Red Cell Distribution Width 13.2 % (11.0-16.0); White Blood Count 6.7 X10*3/uL (4.8-10.8)
[2024-10-03 11:23] LABS: Alanine Aminotransferase 40 U/L (0-40); Albumin Level 4.4 g/dL (3.5-5.0); Alkaline Phosphatase 63 U/L (39-117); Anion Gap 10 (12-20); Aspartate Amino Transferase 33 U/L (5-37); Bilirubin Total 0.5 mg/dL (0.0-1.0); Blood Urea Nitrogen 17 mg/dL (9-16); C Reactive Protein 0.46 mg/dL (< or = 0.50); Calcium 9.6 mg/dL (8.4-10.2); Carbon Dioxide 25 mmol/L (22-29); Chloride 109 mmol/L (96-108); Cholesterol 170 mg/dL (<200); Estimated Glomerular Filt Rate > 60; Ferritin 117 ng/mL (20-250); Glucose Random 93 mg/dL (60-115); HDL Cholesterol 37 mg/dL (>40); Insulin 8 uU/mL (2-29); Iron 62 mcg/dL (45-160); LDL Cholesterol Calculated 120 mg/dL (<100); Percent Iron Saturation 24 % (15-50); Potassium 4.1 mmol/L (3.3-5.1); Sodium 140 mmol/L (135-145); TSH reflex Free T4 0.83 uIU/mL (0.32-4.0); Total Iron Binding Capacity 262 mcg/dL (228-428); Total Protein 7.6 g/dL (6.5-8.0); Triglycerides 69 mg/dL (<150); Unsaturated Iron Binding 200 ug/dL; Vitamin D 25-OH Total 47.2 ng/mL (>30)
[2024-10-03 11:39] LABS: Vitamin B12 886 pg/mL (200-900)
[2024-10-07 03:09] LABS: Zinc 75 mcg/dL (60-130)
[2024-10-07 20:28] LABS: Vitamin A 54 mcg/dL (38-98)
[2024-10-08 16:22] LABS: Vitamin B1 10 nmol/L (8-30)
== END 2024-10-03 09:13 | disposition home or self-care (01) ==
LOC: HO.US 09:12
PROVIDERS: PCP Nurse Practitioner Family; Visit Provider Surgery
DX: E66.01 Morbid (severe) obesity due to excess calories (principal); R73.03 Prediabetes
CPT/HCPCS: 36415; 71046; 76700; 76981; 80053; 80061; 82306; 82607; 82728; 82746; 83036; 83525; 83540; 84425; 84443; 84590; 84630; 85025; 86140; 93005

== ENCOUNTER → 2024-10-03 09:14 | Outpatient (BNV) | payer OTHER, SELFPAY | PROVIDERS: PCP Nurse Practitioner Family; Visit Provider Radiology Diagnostic Radiology | DX: E66.01 Morbid (severe) obesity due to excess calories (principal) | CPT/HCPCS: 71046; 76700 ==

== ENCOUNTER → 2024-10-03 10:27 | Outpatient (BNV) | payer OTHER, SELFPAY | PROVIDERS: PCP Nurse Practitioner Family; Visit Provider Internal Medicine Cardiovascular Disease | DX: R00.1 Bradycardia, unspecified (principal) | CPT/HCPCS: 93010 ==

== ENCOUNTER 2024-10-09 10:59 | Day surgery (SDC) | payer OTHER, SELFPAY ==
[2024-10-09 06:43] VITALS: BMI 41.1
[2024-10-09 11:12] VITALS: BP 150/86; PULSE 67; RESP 20; TEMP 37.1; O2SAT 97; BMI 39.8
[2024-10-09] MEDS: Lactated Ringers 1,000 ML 100 ML IVCONT (11:22)
--- NOTE | 2024-10-09 12:40 | MHC.SHP ---
Pre-Procedural Eval Section A - 24 Hr Update-Section A only Date of Service: 10/09/24 The patient is an INPATIENT: No The patient has been examined within 24 hours of the surgical procedure. The History & Physical has been completed within 30 days and I have reviewed it.: Yes Section B - Complete if H&P > 30 days Chief Complaint: Morbid (severe) obesity due to excess calories Relevant Family History (Specify if Yes): No Relevant Social History: None Present Medications: None Medical History: No relevant PMH History of Previous Operations: No relevant previous surgery Allergies: Allergies Allergy/AdvReac Type Severity Reaction Status Date / Time No Known Allergies Allergy Verified 08/28/24 13:09 Review of Systems Sugical H&P ROS: Negative: Constitution, Cardiovascular, Respiratory, Neurological, Psychiatric, Hem-Onc, Allergic/Immunologic, Gastrointestinal, Genitourinary, Musculoskeletal, Integumentary, Endocrine and Eyes/Ears/Nose/Throat Exam Surgical H&P Exam: Normal: HEENT, Normal: Heart, Normal: Lungs, Normal: Extremities, Normal: Abdomen, Normal: Skin and Normal: Neurological Plan Diagnosis/Plan: Unchanged (EGD to assess the stomach's anatomy. Risks of bleeding and perforation were discussed with the patient and he is in agreement with the plan.) I have reviewed the history and physical and performed a pertinent physical examination on my patient. No changes have occurred unless specified. Time Spent With Patient Time: Total time managing care of this patient today ____ minutes.
--- NOTE | 2024-10-09 12:41 | P.BOP_ITS ---
Brief Operative Note Date of Service: 10/09/24 Pre-op diagnosis: Morbid obesity Post-op diagnosis: same Procedure: PROCEDURE DATE: 10/09/2024 PREOPERATIVE DIAGNOSIS: Morbid obesity POSTOPERATIVE DIAGNOSIS: ?Same as above. 1) gastritis PROCEDURE: Pnjjlcwz-jddkhc-asikmerzevbj with biopsies Surgeon: Wali Mayes M.D.. Ph.D. Acid Extractor: None ? Anesthesia: IV sedation Estimated blood loss: ?Minimal FINDINGS AND PROCEDURE: ? OPERATIVE INDICATIONS: ?The patient is a 38 year old male known to me who is interested in bariatric surgery. Based on this information I recommended an upper endoscopy to evaluate the patient's symptoms. Risks and complications of the surgery were discussed with the patient in advance particularly the possibility of perforation or bleeding that may require surgical intervention. The patient understood the risks and was in agreement with the plan. ? PROCEDURE: After informed consent was obtained by the patient, the patient was ?transferred to the Operating Room and was placed in the supine position.? After successful induction of IV sedation, a mouth block was inserted and the patient was placed in the left lateral decubitus position. An upper endoscopy was performed next, the oropharynx and esophagus appeared within the normal limits. There was no hiatal hernia. The z-line was smooth. Two biopsies were obtained from the distal esophagus 2-3 cm proximal to the GE junction and two additional biopsies from the GE junction. The stomach was entered and it appeared to be of normal size. There was gastritis throughout the stomach. There was no stricture or ulcer. A biopsy was obtained from the gastric fundus and the antrum. No significant bleeding was noted from any of the biopsy sites. Retroflexion of the scope confirmed a normal GE junction. The scope was t hen advanced into the duodenum which appeared to be normal as well. At that point the duodenum ?and the stomach were decompressed and the scope was withdrawn from the patient's mouth. The patient extubated and was transferred in stable condition to the Recovery Room for further care. I was present and performed all steps of the procedure. There were no residents to assist with this case. Brian Mayes M.D., Ph.D. Surgeon: Jimmy Mayes MD Anesthesia: MAC Was an Acid Extractor used for this Procedure?: No Estimated blood loss (mL): 0 IV fluids (mL): 400 Urine output (mL): 0 (No Magana to record output) Pathology: other (1) antrum x1, 2) fundus x1, 3) GE junction x2, 4) distal esophagus x2) Condition: stable Disposition: PACU
--- NOTE | 2024-10-09 12:51 | HO.ANESPROP2 ---
Documented by User: Tory Villalpando NP 10/07/24 14:36 HPI - Anesthesia Eval Consult details Narrative: 38yo M for Upper Endoscopy [facility] Active Problems Active Problems: All Active Problems Morbid obesity (Acute) Vitamin D deficiency (Acute) Mild anemia (Acute) ADHD (attention deficit hyperactivity disorder) evaluation (Acute) Prediabetes (Acute) Class 3 obesity (Acute) Bruxism (Acute) Snoring (Acute) Hypersomnia (Acute) Cough (Acute) Difficulty concentrating (Acute) Laboratory examination ordered as part of a complete physical examination (Acute) Past Medical History Medical History (Updated 08/28/24 @ 13:11 by Jimmy Mayes MD) Morbid obesity Acute eczema Family History Family History Father Substance abuse in family Surgical History Surgical History No pertinent past surgical history Social History Social History Household Members: Family Housing: Apartment Are you a primary career coordinator to a significant other at home: Yes Do you presently have visiting nurse or other home services: Yes Alcohol intake: never Patient Tobacco Use Status: Never used Tobacco e-Cigarette/Vaping Use: Never Used Special ladarius needs: No Are you DNR?: No Advance Directives: No Advance Directives Information Provided: Yes service: No Current occupational status: employed 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 Cognitive needs: No Hearing needs: No Vision needs: No Meds Allergies Allergy/AdvReac Type Severity Reaction Status Date / Time No Known Allergies Allergy Verified 08/28/24 13:09 Assessment and Plan Assessment Anesthesia Assessment: Chart Reviewed Documented by User: Lisseth Morales DO 10/09/24 12:52 PMFSH Past Medical History Medical History (Updated 08/28/24 @ 13:11 by Jimmy Mayes MD) Morbid obesity Acute eczema Family History Family History Father Substance abuse in family Family history of problems with anesthesia: No Surgical History Surgical History No pertinent past surgical history History of Problems with Anesthesia: No (never had surgery) Social History Social History Household Members: Family Housing: Apartment Are you a primary career coordinator to a significant other at home: Yes Do you presently have visiting nurse or other home services: Yes Alcohol intake: never Patient Tobacco Use Status: Never used Tobacco e-Cigarette/Vaping Use: Never Used Special ladarius needs: No Are you DNR?: No Advance Directives: No Advance Directives Information Provided: Yes service: No Current occupational status: employed 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 Cognitive needs: No Hearing needs: No Vision needs: No Meds Allergies Allergy/AdvReac Type Severity Reaction Status Date / Time No Known Allergies Allergy Verified 08/28/24 13:09 Exam Exam Date and Time: 10/09/24 1248 Height,Weight and Vital Signs: Height 6 ft 2 in Weight 140.614 kg Vital Signs Temperature 98.7 F 10/09/24 11:12 Pulse Rate 10/09/24 11:12 Respiratory Rate 10/09/24 11:12 Blood Pressure 150/86 H 10/09/24 11:12 Pulse Oximetry 97 10/09/24 11:12 Oxygen Delivery Method Room Air 10/09/24 11:12 Temperature 98.7 F 10/09/24 11:12 Pulse Rate 10/09/24 11:12 Respiratory Rate 10/09/24 11:12 Blood Pressure 150/86 H 10/09/24 11:12 Pulse Oximetry 97 10/09/24 11:12 Oxygen Delivery Method Room Air 10/09/24 11:12 Airway Mallampati Class: I TM Dist: >3cm Neck ROM: Full Loose/Missing/Broken Teeth: No (patient denies any loose or broken teeth) Heart: S1S2 Lungs: CTAB Assessment and Plan Assessment Anesthesia Assessment: Anesthesia Plan Discussed and Chart Reviewed Final Anesthetic Review Family History of Problems with Anesthesia: No History of Problems with Anesthesia: No (never had surgery) NPO: Yes ASA Class: II Final Preanesthetic Review: No Changes in Pt Med Stat, Meds/Allgs Chart Reviewed, Consent Obtained/Reviewed and Anes Risks/Benef Reviewed Patient Risk: Low Procedure Risk: Low Anesthetic Plan Anesthetic Plan: MAC: and Agree w/ Assess. and Plan Disposition: Standard PACU
[2024-10-09 13:15] VITALS: BP 112/63; PULSE 58; RESP 16; TEMP 530.7; TEMP 987.3; O2SAT 94
[2024-10-09 13:28] VITALS: BP 121/68; PULSE 62; RESP 16; O2SAT 95
== END 2024-10-09 14:21 | disposition home or self-care (01) ==
PROVIDERS: PCP Nurse Practitioner Family; Visit Provider Surgery
PROC: 0DJ08ZZ Inspection of Upper Intestinal Tract, Via Natural or Artificial Opening Endoscopic (ICD-10-PCS; CPT 43235; principal; 2024-10-09 13:20)
DX: E66.01 Morbid (severe) obesity due to excess calories (principal); Z68.41 Body mass index [BMI] 40.0-44.9, adult; K29.50 Unspecified chronic gastritis without bleeding; R73.03 Prediabetes; L30.9 Dermatitis, unspecified; Z79.899 Other long term (current) drug therapy
CPT/HCPCS: 43239; 88305; 88342; J2003; J2704

== ENCOUNTER → 2024-10-09 10:59 | Outpatient (BNV) | payer OTHER, SELFPAY | PROVIDERS: PCP Nurse Practitioner Family; Visit Provider Surgery | DX: K29.70 Gastritis, unspecified, without bleeding (principal) | CPT/HCPCS: 43239 ==

== ENCOUNTER → 2024-11-01 11:34 | Outpatient (AMB) | payer OTHER, SELFPAY ==
--- NOTE | 2024-11-01 11:32 | MHC.PC.OV ---
Intake Visit Reasons: medication follow up for adhd medication Intake Note: medication review for adhd medication Allergies No Known Allergies Allergy (Verified 11/01/24 11:32) Medication List - Last Reconciled 11/01/24 by Gregory Muñiz MD cholecalciferol (vitamin D3) 1,250 mcg PO QWEEK 12 days dextroamphetamine-amphetamine 5 mg (Adderall) 5 mg PO BID 30 days Tobacco use date assessed: 02/01/24 Dental Screening Dental Screen Date: 02/01/24 HPI medication follow up for adhd medication HPI Details 38 y/o male presents to f/u ADHD. He is on Adderall 5mg b.i.d. Notes it has been helping a bit. Denies any worsened anxiety, sleep, appetite issues. Neuropsych stated he did hav some anxiety/depression and recommended SSRIs. Labs drawn 10/03/24. Reviewed labs with pt. Mild anemia. Triglycerids 69. TC 170. LDL 120. HDL low at 37. PFSH Medical History (Updated 11/01/24 @ 13:27 by Donal Smith) Morbid obesity Acute eczema Surgical History No pertinent past surgical history Family History Father Substance abuse in family Social History Household Members: Family Both parents involved: No Caregiver staying overnight: No Housing: Apartment Are you a primary resident care director to a significant other at home: Yes Do you presently have visiting nurse or other home services: Yes 75 years or older and lives alone: No Alcohol intake: never Patient Tobacco Use Status: Never used Tobacco e-Cigarette/Vaping Use: Never Used Special ladarius needs: No service: No Current occupational status: employed 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 Sabas Barnard, Dayana Chiang, Charles Jonas and colleagues, with an educational salma from [employer]. Review of Systems Const Denies chills, Denies fatigue, Denies fever(s), Denies headache(s) and Denies weakness ENT Denies dizziness and Denies headache(s) Card Denies dyspnea Resp Denies cough, Denies dyspnea, Denies wheezing and Denies other (shortness of breath) Musc Denies numbness and Denies tingling Neuro Denies dizziness, Denies headache(s), Denies numbness, Denies tingling and Denies weakness Psych Denies anxiety and Denies depression Endo Denies fatigue Aller/Immun Denies wheezing Physical exam (Primary Care) Tobacco/Smoking Status: Tobacco use Status Tobacco use date assessed 02/01/24 11/01/24 11:33 Patient Tobacco Use Status Never used Tobacco 11/01/24 11:33 e-Cigarette/Vaping Use Never Used 11/01/24 11:33 Thrive Assessment: Date of Thrive Assessment Date Thrive assessed 08/12/24 11/01/24 11:33 Telehealth Telehealth Telehealth Platform: Telephone Location of provider rendering services: practice address Location of patient: address on file Patient Identification confirmed using: Name, : Yes Telehealth method: voice only Patient verbally consented to treatment: Yes Patient verbally consented to billing insurance company: Yes Patient informed of any privacy concerns related to visit: Yes Minutes spent on Phone/Video with Pt.: 9 Coding Level of Care Code Tele Est Pt Level 2 (35564) Diagnoses ADHD (attention deficit hyperactivity disorder) evaluation Z13.39 Depression with anxiety F41.8 Assessment & Plan Assessment & Plan (1) ADHD (attention deficit hyperactivity disorder) evaluation: Code(s): Z13.39 - Encounter for screening examination for other mental health and behavioral disorders Category: Medical Plan: Telemedicine?encounter?to?follow-up?on?treatment?for?ADHD. Had?started?patient?on?5?mg?b.i.d.?which?is?helping?though?does?feel?this?could?improved. No?adverse?effects?such?as worsened?anxiety,?worsened?sleep?or?appetite. Will?increase?dose?to?10?mg?b.i.d.. (2) Depression with anxiety: Code(s): F41.8 - Other specified anxiety disorders Category: Medical Plan: Patient?does?not?have?a?therapist?or?psychiatrist. Neuropsych?had?recommended?could?consider?an?SSRI. Patient?does?not?feel?he?needs?a?therapist?medications?for?this?at?present. I?let?him?know?this?was?available?if?needed. Medications: New dextroamphetamine-amphetamine 10 mg (Adderall) administer doses at least 4-6 hours apart; Partial Fill upon patient request. Masspat Verified 10 mg PO BID 60 tabs 0RF 30 days Discontinued dextroamphetamine-amphetamine 5 mg (Adderall) administer doses at least 4-6 hours apart; Partial Fill upon patient request. Discontinued Reason: Doctor's Order 5 mg PO BID 30 days 60 tabs 0RF
== END ==
LOC: HO.HMCFM 11:34
PROVIDERS: PCP Family Medicine; Visit Provider Family Medicine
DX: F41.8 Other specified anxiety disorders (principal); Z13.39 Encounter for screening examination for other mental health and behavioral disorders

== ENCOUNTER 2024-12-09 08:04 | Outpatient (AMB) | payer OTHER, SELFPAY ==
--- NOTE | 2024-12-09 08:29 | MHC.OFFVISWM ---
VS Expanded 12/09/24 08:35 Height 6 ft 2 in Weight 275 lb 2 oz BMI 35.3 Body Fat % 33.1 Body Fat Mass 91 Fat Free Mass 184 Visceral Fat Rating 17 Body Water % 48.3 Body Water Mass 132.9 Basal Metabolic Rate/Score 2,148 Intake Visit Reasons: TV Pre Op LSG 12/19/24 Allergies No Known Allergies Allergy (Verified 12/09/24 08:30) Medication List - Last Reconciled 12/09/24 by Jimmy Mayes MD dextroamphetamine-amphetamine 10 mg (Adderall) 10 mg PO BID 30 days multivitamin 1 tab PO DAILY ondansetron 4 mg PO Q12H pantoprazole 40 mg PO DAILY polyethylene glycol 3350 17 grams PO DAILY sucralfate 10 mL PO BID HPI HPI TV Pre Op LSG 12/19/24: Details: Start time: 8.16am, End time: 8.46pm ?I spent 25 minutes speaking with the patient on the phone plus an additional 5 minutes reviewing and updating records for a total of 30 minutes HPI Comments Details: Overall weight loss: 44.9 lbs. or 14% TBWL Is doing 2 [employer] Lean protein shakes (1/2 scoop in almond milk), 2 Atkins protein bars and one meal (11 forkfuls of protein and 11 forkfuls of salad) Exercise: is doing the rowing machine x5 wk for 380 calories each and treadmill x1/wk for 15 minutes REPLACED BY [facility] Medical History (Updated 11/01/24 @ 13:27 by Donal Smith) Marijuana use Morbid obesity Acute eczema Surgical History (Updated 12/05/24 @ 13:13 by Ethel Benoit RN) History of esophagogastroduodenoscopy (EGD) No pertinent past surgical history Family History Father Substance abuse in family Social History Household Members: Family Both parents involved: No Caregiver staying overnight: No Housing: Apartment Are you a primary patient care coordinator to a significant other at home: No Do you presently have visiting nurse or other home services: No 75 years or older and lives alone: No Alcohol intake: never Patient Tobacco Use Status: Never used Tobacco e-Cigarette/Vaping Use: Never Used Special ladarius needs: No service: No Current occupational status: employed 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 Cognitive needs: No Hearing needs: No Vision needs: No Telehealth Telehealth Telehealth Platform: Telephone Location of provider rendering services: practice address Location of patient: address on file Patient Identification confirmed using: Name, : Yes Telehealth method: voice only Patient verbally consented to treatment: Yes Patient verbally consented to billing insurance company: Yes Patient informed of any privacy concerns related to visit: Yes Minutes spent on Phone/Video with Pt.: 30 Assessment & Plan Assessment & Plan (1) Class 3 obesity: Code(s): E66.813 - Obesity, class 3 Category: Medical Plan: 1. Plan for lap sleeve gastrectomy including upper GI endoscopy. All tests has been completed and reviewed and the patient is cleared for the surgery. ?If diaphragmatic or ventral hernias are present at time of surgery, these will be repaired laparoscopically as well. 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 I emphasized the importance of close follow-up, adherence to instructions and good communication. So far she has proven to be an excellent communicator and very compliant with all our directions accomplishing a great weight loss. I believe that she is an excellent candidate and she is ready. 2. Preop prescriptions were provided and explained the purpose of each one. Need to be purchased preop. Start Pantoprazole now as you get it from the pharmacy, 1 pill per day. Sucralfate and Zofran are for after surgery as needed. 3. Bowel prep: please do 7 packets ?of Miralax mixing each one with a an 8oz glass of water, crystal light, gatorade zero, or propel ?on 12/17/24 and the same amount on 12/18/24. The Miralax you begin with one packet at a time in 8oz water or crystal light, gatorade zero, or propel ?as early in the day as you can and you do them back to back until you finish them. Continue the protein shakes during ?the bowel prep. 4. Needs to purchase 1oz medicine cups . 5. Needs to purchase Children's liquid Tylenol for postop pain control. 6. Avoid aspirin, motrin, Advil, Aleve, Meloxicam, Excedrin, Ibuprofen, Naproxyn. Tylenol is OK. 7. She needs to purchase the Celebrate multivitamins from the hospital's gift shop. 8. Will do basic preop blood work-up any day between Monday12/10/24 and Monday12/13/24 fasting for 12 hours and is scheduled to see the Anesthesiologist prior to the day of surgery. 9. Importance of adherence to postop folllow-up and recommendations was underscored and she understands that. 10. Stop food and bars as of Monday12/12/24 and continue with 2 [employer]NC protein shakes (HALF scoop EACH in 8oz almond milk) at 8am-10am and 11am-1pm, and three more GNC protein shakes with ONE scoop EACH in 8oz of almond milk at 2pm-4pm, 5pm-7pm and at 8pm-10pm 11. No soups, broths or V8 12. The patient's?medical?history has been reviewed and they are considered low risk for post op DVT and therefore DVT prophylaxis is not considered necessary. Travel after surgery was reviewed. The patient has not disclosed any travel plans during the first 30 days after surgery and they have been advised that within the first 30 days after surgery any bus, plane, train or car travel over 2 hours in duration is contraindicated due to the possibility of developing blood clots from immobility. Any travel, needs to include periods of ambulation of 10 minutes in duration every 2 hours.? Patient was instructed to discuss any plans for travel during this period with their bariatric surgeon.? 13. Please take at the day of surgery the following medications: NONE 14. Absolutely no smoking or vaping, or marijuana until the surgery and for at least the first 4 weeks. Only nicotine patches are allowed. 15. Send me weight measurements on Monday12/10/24, Monday12/15/24 and then on 12/19/24, the day of surgery before you go to the hospital. 16. Avoid any steroids by mouth for any reason. Let me know if someone prescribes them to you 17. These instructions supersede anything else you read in the handbook, anything you watched in videos or classes or you were told by any other provider. If there is any conflict, you follow the above instructions and nothing else. Orders: Orders Comprehensive Met. Panel Today E66.813 - Obesity, class 3 TSH reflex Free T4 Today E66.813 - Obesity, class 3 Prothrombin Time INR Today E66.813 - Obesity, class 3 Hemoglobin A1c Today E66.813 - Obesity, class 3 Type and Screen Today E66.813 - Obesity, class 3 C Reactive Protein Today E66.813 - Obesity, class 3 Complete Blood Count Auto Diff Today E66.813 - Obesity, class 3 Insulin Today E66.813 - Obesity, class 3 Lipid Panel Today E66.813 - Obesity, class 3 Medications: New pantoprazole 40 mg PO DAILY 90 tabs 0RF K21.9 - Gastro-esophageal reflux disease without esophagitis sucralfate 10 mL PO BID 600 mL 2RF K21.9 - Gastro-esophageal reflux disease without esophagitis ondansetron Only take one every 12 hours as needed if you have nausea 4 mg PO Q12H 20 tabs 0RF nausea and vomiting R11.0 - Nausea polyethylene glycol 3350 Mix each measuring cup with 8oz of water, Crystal light, or Gatorade zero, or Propel and do 7 measuring cups on 12/17/24 and another 7 measuring cups on 12/18/24 17 grams PO DAILY 238 grams 0RF Z01.818 - Encounter for other preprocedural examination
[2024-12-09 08:35] VITALS: BMI 35.3
== END 2024-12-09 08:47 | disposition home or self-care (01) ==
LOC: HO.HBS 08:04
PROVIDERS: PCP Family Medicine; Visit Provider Surgery
DX: E66.812 Obesity, class 2 (principal); Z68.35 Body mass index [BMI] 35.0-35.9, adult
CPT/HCPCS: 99499

== ENCOUNTER → 2024-12-09 08:04 | Outpatient (BNVA) | payer OTHER, SELFPAY | PROVIDERS: PCP Family Medicine; Visit Provider Surgery ==

== ENCOUNTER 2024-12-10 09:37 | Outpatient (REF) | payer OTHER, SELFPAY ==
[2024-12-10 10:20] LABS: MANUAL DIFF FLAG NO
[2024-12-10 11:09] LABS: Basophils Percent Auto 0.5 % (0-2); Eosinophils Absolute Auto 0.1 X10*3/uL (0.0-0.4); Eosinophils Percent Auto 1.2 % (0-4); Hematocrit 41.7 % (42.0-52.0); Hemoglobin 13.7 g/dl (14.0-18.0); Imm Gran Abs Auto 0.02 X10*3/uL (0.00-0.03); Imm Gran Pct Auto 0.2 % (0.0-0.4); Lymphocytes Absolute Auto 0.7 X10*3/uL (1.2-4.9); Lymphocytes Percent Auto 8.3 % (20-40); Mean Corpuscular HGB Conc 32.9 g/dl (31.0-36.0); Mean Corpuscular Hemoglobin 26.4 pg (27.0-33.0); Mean Corpuscular Volume 80.3 fL (80.0-98.0); Monocytes Absolute Auto 0.6 X10*3/uL (0.1-1.2); Monocytes Percent Auto 7.7 % (2-11); Neutrophils Absolute Auto 6.6 x10*3/uL (2.0-8.3); Neutrophils Percent Auto 82.1 % (45-73); Platelet Count 243 X10*3/uL (160-400); Red Blood Count 5.19 X10*6/uL (4.60-5.80); Red Cell Distribution Width 13.2 % (11.0-16.0)
[2024-12-10 11:21] LABS: Estimated Average Glucose 114 mg/dL; Hemoglobin A1C 136.0488 umol/L; Hemoglobin A1c % 5.6 % (<6.0); Total Hemoglobin (HGBA1C) 3610.7091 umol/L
[2024-12-10 11:22] LABS: INTERNATIONAL NORM RATIO 1.2 (0.9-1.1); Prothrombin Time 13.9 SEC (10.9-12.4)
[2024-12-10 11:52] LABS: Alanine Aminotransferase 27 U/L (0-40); Albumin Level 4.4 g/dL (3.5-5.0); Alkaline Phosphatase 66 U/L (39-117); Anion Gap 9 (12-20); Aspartate Amino Transferase 22 U/L (5-37); Bilirubin Total 0.8 mg/dL (0.0-1.0); Blood Urea Nitrogen 12 mg/dL (9-16); C Reactive Protein 0.76 mg/dL (< or = 0.50); Calcium 9.6 mg/dL (8.4-10.2); Carbon Dioxide 27 mmol/L (22-29); Chloride 108 mmol/L (96-108); Cholesterol 143 mg/dL (<200); Estimated Glomerular Filt Rate > 60; Glucose Random 87 mg/dL (60-115); HDL Cholesterol 40 mg/dL (>40); LDL Cholesterol Calculated 94 mg/dL (<100); Potassium 3.9 mmol/L (3.3-5.1); Sodium 140 mmol/L (135-145); Total Protein 7.3 g/dL (6.5-8.0); Triglycerides 49 mg/dL (<150)
[2024-12-10 12:00] LABS: TSH reflex Free T4 1.17 uIU/mL (0.32-4.0)
[2024-12-10 12:34] LABS: Insulin 7 uU/mL (2-29)
== END 2024-12-10 09:38 | disposition home or self-care (01) ==
LOC: HO.LAB 09:37
PROVIDERS: PCP Family Medicine; Visit Provider Surgery
DX: E66.813 Obesity, class 3 (principal); Z13.1 Encounter for screening for diabetes mellitus; Z13.0 Encounter for screening for diseases of the blood and blood-forming organs and certain disorders involving the immune mechanism
CPT/HCPCS: 36415; 80053; 80061; 83036; 83525; 84443; 85025; 85610; 86140

== ENCOUNTER 2024-12-12 09:55 | Outpatient (REF) | payer OTHER, SELFPAY ==
--- NOTE | ~2024-12-12 | FL_ITS ---
EXAMINATION: XR FLUOROSCOPY UPPER GI SERIES CLINICAL INFORMATION: Morbid obesity due to excess calories. Preoperative bariatric evaluation. COMPARISON: None TECHNIQUE: Fluoroscopic air contrast upper GI examination was performed utilizing standard techniques with thin and thick barium and effervescent granules. Numerous spot images were obtained. Several fluoroscopic image hold cine sequences were also obtained. FINDINGS: UPPER GI SERIES: Lateral cine images of the oropharynx and hypopharynx demonstrate normal swallow mechanism with normal epiglottic inversion and soft palate elevation. No laryngeal penetration, glottic or subglottic aspiration identified. No nasopharyngeal reflux present. Hypopharyngeal structures appear normal without evidence of mass or diverticulum. There was no significant cricopharyngeal achalasia. Dual and single contrast images of the esophagus demonstrate normal caliber, contour, and mucosal pattern. No evidence of stricture, mass, or ulcerations identified. Esophageal peristalsis was normal. No evidence of hiatus hernia identified. Normal GE junction. No significant gastroesophageal reflux was seen during the course of the examination and on reflux views. Dual contrast and single contrast images of the stomach demonstrated normal contour and rugal fold pattern. Normal gastric mucosal pattern without evidence of mass, ulceration, or other abnormality. Contrast freely passed into the gastric antrum and duodenal bulb without delay. Single and air-contrast images of the duodenal bulb demonstrate no abnormality. The duodenal sweep has a normal appearance, course, and mucosal fold appearance. FLUOROSCOPY TIME: 3 minutes, 3 seconds Number of Spot Images:9 Number of cines obtained: 14 DOSE AREA PRODUCT: 4226 uGy-m2 (microgray-meter squared) FL/FL upper GI w air IMPRESSION: 1. Normal upper GI examination. No abnormalities. Electronically signed by: Vazquez Molina MD 12/12/2024 12:18 PM EDT
== END 2024-12-12 09:56 | disposition home or self-care (01) ==
LOC: HO.CT 09:55
PROVIDERS: PCP Family Medicine; Visit Provider Surgery
DX: E66.01 Morbid (severe) obesity due to excess calories (principal); R73.03 Prediabetes
CPT/HCPCS: 74246

== ENCOUNTER → 2024-12-12 09:57 | Outpatient (BNV) | payer OTHER, SELFPAY | PROVIDERS: PCP Family Medicine; Visit Provider Radiology Diagnostic Radiology | DX: E66.01 Morbid (severe) obesity due to excess calories (principal); Z01.818 Encounter for other preprocedural examination | CPT/HCPCS: 74246 ==

== ENCOUNTER 2024-12-19 06:20 | Inpatient (IN) | payer OTHER, SELFPAY ==
[2024-12-05 13:39] VITALS: BMI 35.3
--- NOTE | 2024-12-17 12:21 | P.CONAN_ITS ---
Documented by User: oTry Villalpando NP 12/17/24 12:22 HPI - Anesthesia Eval Consult details Narrative: 38yo M for Gastrectomy Sleeve - EGD, possible diaphragmatic hernia, possible ventral hernia, possible open PMFSH Active Problems Active Problems: All Active Problems Elevated LDL cholesterol level (Acute) Depression with anxiety (Acute) Vitamin D deficiency (Acute) Mild anemia (Acute) ADHD (attention deficit hyperactivity disorder) evaluation (Acute) Prediabetes (Acute) Class 3 obesity (Acute) Bruxism (Acute) Snoring (Acute) Hypersomnia (Acute) Cough (Acute) Difficulty concentrating (Acute) Laboratory examination ordered as part of a complete physical examination (Acute) Morbid obesity (Acute) Past Medical History Medical History ADHD Marijuana use Morbid obesity Acute eczema Family History Family History Father Substance abuse in family Family history of problems with anesthesia: No Surgical History Surgical History History of esophagogastroduodenoscopy (EGD) No pertinent past surgical history History of Problems with Anesthesia: No (never had surgery) Social History Social History Household Members: Family Housing: Apartment Are you a primary respiratory care practitioner to a significant other at home: No Do you presently have visiting nurse or other home services: No Alcohol intake: never Patient Tobacco Use Status: Never used Tobacco e-Cigarette/Vaping Use: Never Used Special ladarius needs: No service: No Current occupational status: employed 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 Cognitive needs: No Hearing needs: No Vision needs: No Meds Allergies Allergy/AdvReac Type Severity Reaction Status Date / Time No Known Allergies Allergy Verified 12/19/24 06:32 Home Medications ?Medication ?Instructions ?Recorded ?Confirmed ?Last Taken ?Type multivitamin 1 tab PO DAILY 12/05/24 12/09/24 12/18/24 History Exam Height,Weight and Vital Signs: Height 6 ft 2 in Weight 124.738 kg Pertinent Lab Results Pertinent Lab Results: Laboratory Tests 12/10/24 10:20 Blood Type A Positive Antibody Screen NEGATIVE Laboratory Tests 12/10/24 10:19 WBC 8.0 Hgb 13.7 L Hct 41.7 L Plt Count 243 Sodium 140 Potassium 3.9 Chloride 108 Carbon Dioxide 27 BUN 12 Creatinine 0.95 Narrative Narrative: EKG 09/2024 Vent. Rate : 54 BPM Atrial Rate : 54 BPM P-R Int : 176 ms QRS Dur : 90 ms QT Int : 406 ms P-R-T Axes : 60 13 37 degrees QTcB Int : 385 ms Sinus bradycardia Otherwise normal ECG No previous ECGs available Assessment and Plan Assessment Anesthesia Assessment: Chart Reviewed Final Anesthetic Review Family History of Problems with Anesthesia: No History of Problems with Anesthesia: No (never had surgery) Documented by User: Dilma Bah MD 12/19/24 08:53 HPI - Anesthesia Eval Consult details Narrative: 38yo M for EGD, Laparoscopic Sleeve Gastrectomy, possible diaphragmatic hernia repair, possible ventral hernia repair, possible open PMFSH Active Problems Active Problems: All Active Problems Elevated LDL cholesterol level (Acute) Depression with anxiety (Acute) Vitamin D deficiency (Acute) Mild anemia (Acute) ADHD (attention deficit hyperactivity disorder) evaluation (Acute) Prediabetes (Acute) Class 3 obesity (Acute) Bruxism (Acute) Snoring (Acute)- Sleep study 07/2024 was inconclusive Hypersomnia (Acute) Cough (Acute) Difficulty concentrating (Acute) Laboratory examination ordered as part of a complete physical examination (Acute) Morbid obesity (Acute) BMI 35.3 Lost about 50 pounds Past Medical History Medical History ADHD Marijuana use Morbid obesity Acute eczema Family History Family History Father Substance abuse in family Family history of problems with anesthesia: No Surgical History Surgical History History of esophagogastroduodenoscopy (EGD) No pertinent past surgical history History of Problems with Anesthesia: No Social History Social History Household Members: Family Housing: Apartment Are you a primary respiratory care practitioner to a significant other at home: No Do you presently have visiting nurse or other home services: No Alcohol intake: never Patient Tobacco Use Status: Never used Tobacco e-Cigarette/Vaping Use: Never Used Special ladarius needs: No service: No Current occupational status: employed 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 Cognitive needs: No Hearing needs: No Vision needs: No Meds Allergies Allergy/AdvReac Type Severity Reaction Status Date / Time No Known Allergies Allergy Verified 12/19/24 06:32 Home Medications ?Medication ?Instructions ?Recorded ?Confirmed ?Last Taken ?Type multivitamin 1 tab PO DAILY 12/05/24 12/09/24 12/18/24 History Exam Height,Weight and Vital Signs: Height 6 ft 2 in Weight 124.738 kg Vital Signs Temp Pulse Resp BP Pulse Ox O2 Del Method 12/19/24 06:31 97.6 F 70 15 144/84 H 96 Room Air Airway Mallampati Class: II TM Dist: >3cm Neck ROM: Full Loose/Missing/Broken Teeth: Yes (Some dental extractions back- 1 bottom left. Denies broken or loose teeth) Heart: RRR Lungs: CTAB Assessment and Plan Assessment Anesthesia Assessment: Anesthesia Plan Discussed and Chart Reviewed Final Anesthetic Review Family History of Problems with Anesthesia: No History of Problems with Anesthesia: No NPO: Yes ASA Class: III Final Preanesthetic Review: No Changes in Pt Med Stat, Meds/Allgs Chart Reviewed , Consent Obtained/Reviewed and Anes Risks/Benef Reviewed Patient Risk: Intermediate Procedure Risk: Intermediate Assessment/Block/Sedation in SS: Assess/Block/Sedation-SS Anesthetic Plan Anesthetic Plan: GA Disposition: Standard PACU and Inp. Admit - Standard Bed
[2024-12-19] VITALS (16 sets, daily range): BP systolic 144–167; BP diastolic 79–118; PULSE 43–84; RESP 12–23; TEMP 36.2–37.8; O2SAT 94–99
[2024-12-19] MEDS: Aprepitant 32 MG/4.4 ML VIAL IVPUSH (06:40)
[2024-12-19] MEDS: Lactated Ringers 1,000 ML 999 ML IV (06:43)
--- NOTE | 2024-12-19 07:30 | MHC.SHP ---
Pre-Procedural Eval Section A - 24 Hr Update-Section A only Date of Service: 12/19/24 The patient is an INPATIENT: Yes The patient has been examined within 24 hours of the surgical procedure. The History & Physical has been completed within 30 days and I have reviewed it.: Yes Section B - Complete if H&P > 30 days Chief Complaint: Obesity, unspecified Relevant Family History (Specify if Yes): No Relevant Social History: None Present Medications: None Medical History: No relevant PMH History of Previous Operations: No relevant previous surgery Allergies: Allergies Allergy/AdvReac Type Severity Reaction Status Date / Time No Known Allergies Allergy Verified 12/19/24 06:32 Review of Systems Sugical H&P ROS: Negative: Constitution, Cardiovascular, Respiratory, Neurological, Psychiatric, Hem-Onc, Allergic/Immunologic, Gastrointestinal, Genitourinary, Musculoskeletal, Integumentary, Endocrine and Eyes/Ears/Nose/Throat Exam Surgical H&P Exam: Normal: HEENT, Normal: Heart, Normal: Lungs, Normal: Extremities, Normal: Abdomen, Normal: Skin and Normal: Neurological Plan Diagnosis/Plan: Unchanged I have reviewed the history and physical and performed a pertinent physical examination on my patient. No changes have occurred unless specified. Time Spent With Patient Time: Total time managing care of this patient today ____ minutes.
[2024-12-19] MEDS: Lactated Ringers 1,000 ML 100 ML IVCONT ×3 (07:35→21:45)
[2024-12-19] MEDS: ceFAZolin Sodium/Dextrose,Iso 2 GM/50 ML PIGGYBACK IV ×2 (07:46→13:06)
--- NOTE | 2024-12-19 07:50 | P.BOP_ITS ---
Brief Operative Note Date of Service: 12/19/24 Pre-op diagnosis: Severe obesity with comorbidities (see below) Post-op diagnosis: same Procedure: INITIAL PATIENT BMI ON PRESENTATION AT OUR OFFICE: 41 kg/m2 LAST BMI BEFORE SURGERY: 34.1 kg/m2 COMORBIDITIES: prediabetes ?The patient presented to the Weight Management Program with significant obesity that was negatively impacting the patient's comorbidities as listed above.? The program is a phased program with a special focus on preoperative medical weight management to promote substantial weight loss and prepare the patients for the second phase of the program: bariatric surgery. The patient participated in an intensive weekly lifestyle ?intervention and exercise program during which the patient ?has lost between the initial office visit and the last preoperative visit 47.1 lbs, or 14.7% of initial actual body weight. It was deemed appropriate for the patient to now have bariatric surgery. In light of the current Covid-19 pandemic and the well documented strong association of obesity and increased risk of worse outcomes if infected with Covid-19 (REFERENCES: https://pubmed.ncbi.nlm.nih.gov/32450995/ ,? https://pubmed.ncbi.nlm.nih.gov/90145968/ ), any delay in undergoing bariatric surgery may lead to the patient's worsening health condition and increased?risk of more severe Covid-19 disease if infected. In addition a recent?study from [facility] published in [facility] [employer] on 09/06/2021 ([email or web address]) found that, among patients with obesity, substantial weight loss achieved with surgery was associated with improved outcomes of COVID-19 infection. The findings suggest that obesity can be a modifiable risk factor for the severity of COVID-19 infection. In addition, the patient met the BMI-criteria for bariatric surgery based on the BMI on initial presentation. The patient should not be penalized for achieving such weight loss because ?it is not sustainable long-term without surgical intervention and it was achieved in preparation for bariatric surgery ?under my direction and based on my published research ([email or web address] [email or web address]).pdf and? https://www.timothy.org/article/[email or web address](25)85704-X/pdf ) ?that a 10% preoperative weight loss improves long-term weight loss after surgery and reduces perioperative complications.? Insurance carriers such as [employer] have endorsed my recommendations ?and have included in their policies criteria to include a 10% preoperative weight loss requirement. PROCEDURE: Esophago-gastroscopy, laparoscopic sleeve gastrectomy and laparoscopic gastropexy INDICATIONS: This is a 38 year-old male who was electively scheduled for laparoscopic, possibly open sleeve gastrectomy. The risks and complications of the procedure were discussed with the patient in advance, particularly the possibility of ; pulmonary embolism; staple line leak; bleeding; GERD; cardiac, pulmonary, or renal complications; as well as long-term problems such as insufficient weight loss, vitamin deficiency, strictures, or ulcers. The patient understood all the risks, and was in agreement to proceed with surgery. DESCRIPTION OF PROCEDURE: After informed consent was obtained from the patient, the patient was given preoperative antibiotics, and was transferred to the operating room. After successful induction of general anesthesia, pneumatic compression devices were placed on both lower extremities. An upper endoscopy was performed next. The oropharynx and esophagus appeared to be within normal limits. There was no diaphragmatic hernia present. The stomach was entered. Then after all fluid and air were suctioned and the stomach was fully decompressed, the scope was withdrawn and secured in the mid esophagus. The patient was then prepped and draped in the usual sterile manner, and abdominal access was established at the right upper quadrant with the Doe technique. A 12 mm blunt port was inserted, and the abdomen was insufflated with CO2 to a pressure of 15 mmHg. Under direct visualization, additional ports were placed, specifically two 5 mm Versi-step ports to the left upper quadrant, and a 5 mm Versi-Step port to the right upper quadrant. 1% lidocaine plain was used to infiltrate all port sites as well as all fascia defects. Following that, the patient was placed in a steep reverse Trendelenburg position. An additional 5 mm port was placed to the right flank for the Mediflex retractor that was used to retract the left lobe of the liver. The gastro-esophageal fat pad was opened with the ultrasonic device (Thelyssaerberolanda, Olympus) and the anterior esophagus and hiatus were exposed. The angle of His was opened with the ultrasonic device the fundus of the stomach from any diaphragmatic and splenic attachments. I then opened the gastrocolic ligament between the transverse colon and the greater curvature of the stomach with the ultrasonic device to enter the lesser sac and facilitate the ligation of the short gastric vessels. I started at a mid-point along the greater curvature and using the Thunderbeat, all short gastric vessels were divided all the way to the angle of His until the left lissy was completely dissected at its entirety. I then divided the gastro-colic ligament distally to a distance of about 3-4 cm proximal to the pylorus.? The stomach was then divided transversely with three Endo SIDNEY-45 purple and three SIDNEY-60 articulating purple loads using the ANTERIOS stapler and loads. Every effort was made that the gastric sleeve had a tubular shape and an even caliber throughout. Once the sleeve resection was completed, the staple line of the gastric sleeve was reinforced with Hemoclips. The resected stomach was retrieved without difficulty from the Doe port. A gastropexy was then performed in order to prevent postoperative GERD and partial gastric volvulus. Several interrupted 2.0 Surgidac sutures were placed between the sleeve's staple line and the previously divided greater omentum and gastro-colic ligament using the Endo-Stitch device. ?An upper endoscopy was performed. There was no narrowing at the GE junction. The scope was easily advanced all the way to the pylorus which was clearly visualized. There was no narrowing anywhere and the sleeve's caliber was even throughout. The sleeve's staple line was inspected and there was no evidence of ischemia, bleeding or dehiscence. At that point the gastroscope was withdrawn from the patient?s mouth while we were decompressing the bowel and the stomach from any remaining air. I looked into the lesser sac to see how the sleeve was situating and it was situating well. There was no bleeding from the staple line, spleen, or short gastric vessels. The Mediflex retractor was removed, and the undersurface of the liver was inspected and there was no bleeding. The patient was placed in supine position. I closed the fascial defect of the 12 mm port site with a figure of eight #1 Polysorb suture. Then 30cc Ropivacaine plain with 10 mg of Dexamethasone were used to infiltrate the fascial closure as well as all skin incisions. At this point, the abdomen was deflated, all ports were removed under direct vision, and no bleeding was noted from any of the port sites. The skin incisions were irrigated with saline and were closed with 4-0 absorbable monofilament sutures. Steri-Strips and OpSites were used to cover all incisions. The patient was extubated and was transferred in stable condition to the recovery room for further care. I was present and performed all powers parts of the procedure. Ms. Nathlea was the medical assistant internal medicine. There were no residents to assist with this case. Brian Mayes MD, PhD, FACS Surgeon: Jimmy Mayes MD Anesthesia: GETA, local and other (TAP block) Was an Junior Technical Writer used for this Procedure?: Yes Junior Technical Writer: Jessica Larry Estimated blood loss (mL): 10 IV fluids (mL): 1,800 Urine output (mL): 0 (No Magana to record output) Pathology: other (1) Stomach, 2) Gastro-esophageal fat pad) Condition: stable Disposition: PACU
--- NOTE | 2024-12-19 07:52 | P.PNGS_ITS ---
Subjective Subjective Date of Service: 12/20/24 Interval history: Feels well. Mild incisional pain. He is tolerating phase 1 bariatric diet Physical Exam 2 Vital Signs: Vital Signs: Last Vital Signs Temp 97.6 F 12/19/24 06:31 Pulse 70 12/19/24 06:31 Resp 15 12/19/24 06:31 BP 144/84 H 12/19/24 06:31 Pulse Ox 96 12/19/24 06:31 O2 Del Method Room Air 12/19/24 06:31 BMI result Body Mass Index 35.3 GI: Inspection: Yes normal to inspection, Yes incision (clean, dry and intact) and Yes obesity Palpation (GI): Soft to palpation Extrem: Right lower extremity: normal to inspection (no calf tenderness) L eft lower extremity: normal to inspection (no calf tenderness) Objective Data Active Medications Lactated Ringer's (Lr) 1,000 mls @ 100 mls/hr IVCONT .Q10H HIMANSHU Lactated Ringer's (Lr) 1,000 mls @ 999 mls/hr IV .Q1H1M HIMANSHU Stop: 12/19/24 08:30 Last Admin: 12/19/24 06:43 Dose: 999 mls/hr Documented By: [facility] 12/20/24 05:42 12/19/24 11:28 Procedures Date of Service Date of Service: 12/20/24 Progress Note: A&P Assessment and plan (1) Class 3 obesity: Status: Acute Assessment and Plan: s/p laparoscopic sleeve gastrectomy and gastropexy Doing well Will check am labs and if OK the patient will be discharged home (2) BMI 34.0-34.9,adult: Status: Inactive (3) ADHD (attention deficit hyperactivity disorder) evaluation: Status: Acute (4) Depression with anxiety: Status: Acute (5) Prediabetes: Status: Acute (6) S/P laparoscopic sleeve gastrectomy: Status: Acute Time Spent With Patient Time: Total time managing care of this patient today ____ minutes. Quality Stroke Does the patient have a stroke diagnosis?: No VTE Prior VTE?: No VTE Risk Level:: Surgical - moderate VTE Device Contraindication: N/A - Device Ordered VTE Drug Contraindication: Treatment Not Indicated
[2024-12-19] MEDS: HYDROmorphone HCl 0.5 MG/0.5 ML SYRINGE 0.25 MG IVPUSH ×3 (10:18→14:12)
[2024-12-19] MEDS: Labetalol HCL 100 MG/20 ML VIAL IVPUSH ×3 (10:20→10:41)
--- NOTE | 2024-12-19 10:21 | PM.DS ---
DS: Providers Provider Date of Service: 12/20/24 Date of discharge: 12/20/24 Primary care physician: Gregory Muñiz MD DS: Diagnosis Discharge Diagnosis (1) Class 3 obesity: Status: Acute (2) ADHD (attention deficit hyperactivity disorder) evaluation: Status: Acute (3) Depression with anxiety: Status: Acute (4) Prediabetes: Status: Acute DS: Summary Hospital Course Hospital Course: ADMITTING DIAGNOSIS: obesity,?depression, anxiety, ADHD, prediabetes, hypersomnia ? DISCHARGE DIAGNOSIS: same, s/p laparoscopic sleeve gastrectomy and gastropexy ? PAST SURGICAL HISTORY:?hx EGD ? PROCEDURE: upper endoscopy, laparoscopic sleeve gastrectomy and gastropexy ? DISCHARGE SUMMARY: ? History of Present Illness: ? The patient is a? 38? year-old male with a BMI of? 35.3? kg/m2 and associated co-morbidities as described above. The patient had extensive work-up, lost?45.1 lbs preoperatively and was electively scheduled for laparoscopic, possible open sleeve gastrectomy and gastropexy. Risks and complications of the surgery were discussed with the patient in advance, particularly the possibility of , pulmonary embolism, anastomotic leak, bleeding, bowel injury, GERD, cardiac, renal or pulmonary complications. The patient understood all the risks and was in agreement with the surgical plan. ? Hospital Course: ? The patient underwent an uneventful laparoscopic sleeve gastrectomy with gastropexy on the day of admission. Postoperatively, the patient was transferred to the surgical floor. The patient received IV Acetaminophen and IV dilaudid for pain control. Patient was started on bariatric phase 1 diet POD #0. On postoperative day one, the patient was feeling well without nausea, vomiting, fevers, or tachycardia. The patient had some mild incisional pain and the abdomen was soft.? ? On the morning of postoperative day one, the patient was continued on 1 ounce of water or ice every half hour. During the day, the patient did fairly well, having some incisional pain, but able to ambulate adequately and to tolerate liquids well. ? Since the patient is doing well, we decided that the patient was ready to be discharged. The patient was given instructions to follow-up with me next week and to call my office for any fever over 101, persistent abdominal pain, nausea, vomiting, GERD, symptoms of DVT such as calf tenderness, or leg swelling, or pulmonary embolism such as chest pain or shortness of breath.? The patient was also instructed to drink 40-60 ounces of liquids per day using the 1-ounce cups. The patient had been given prescriptions for Tylenol for pain, Zofran prn for nausea, and pantoprazole and carafate previously. The patient was encouraged to ambulate and use the incentive spirometer. The patient was allowed to shower, but no baths, and encouraged to stay active at home. All of these instructions were given to the patient personally. All questions were answered and the patient understood all instructions, the instructions were also given to the patient in print. Time Attestation Discharge Coordination Time (in mins): 30 Quality: Safe Use of Opioids Does Pt have an Active Cancer Diagnosis on the Problem List?: No Quality: Stroke Does the patient have a stroke diagnosis?: No Physical Exam Vital Signs: Vital Signs: Last Vital Signs Temp 99.2 F 12/19/24 10:12 Pulse 84 12/19/24 10:20 Resp 17 12/19/24 10:18 BP 162/118 H 12/19/24 10:20 Pulse Ox 97 12/19/24 10:12 O2 Del Method Nasal Cannula 12/19/24 10:12 BMI result Body Mass Index 35.3 DS: Data Data Completed and Pending Pending studies at discharge: Pending at discharge 12/19/24 09:38 Surgical [PTH] Routine Discharge Plan Discharge Anticipated Discharge Date/Time: 12/20/24 08:05 Patient Disposition: Home, Self-Care Discharge Diagnosis: s/p laparoscopic sleeve gastrectomy with gastropexy Referrals: Gregory Muñiz MD [Primary Care Provider] - 1 Week Discharge Medications: Continued pantoprazole 40 mg tablet,delayed release (DR/EC) 40 mg PO DAILY Qty: 90 0RF sucralfate 100 mg/mL suspension 10 ml PO BID Qty: 600 2RF ondansetron 4 mg tablet,disintegrating 4 mg PO Q12H Qty: 20 0RF Rx Instructions: Only take one every 12 hours as needed if you have nausea Discontinued multivitamin Tablet 1 tab PO DAILY dextroamphetamine-amphetamine [Adderall] 10 mg tablet 10 mg PO BID 30 Days Qty: 60 0RF Rx Instructions: administer doses at least 4-6 hours apart; Partial Fill upon patient request. [facility] Verified Discharge Orders: Discharge Order (Routine); Ordered 12/20/24 Ordered By: Jimmy Mayes Activity on Discharge: No heavy lifting Stand Alone Forms: Patient Portal Discharge page Print Language: Latvian Care Plan Goals: weight loss Health Concerns: obesity Plan of Treatment: No tub baths, sex or returning to work until discussed at first post op appointment. No alcohol, tobacco or illegal drug use. Continue to use incentive spirometer hourly while awake. Walk in home for 5- 10 minutes every 2 hours during the first week. Wear abdominal binder with activity. Follow all meal plan instructions from your bariatric surgeon. Review bariatric handbook and call with any questions. Discharge Instructions 1. Please call your doctor or come back to the emergency room should any new symptoms arise. 2. Activity: abstain from alcohol,? limited stair climbing, no bending, no driving, no exercise, no illicit substances, no lifting, no sex, no tub bath, no work. 4. Diet: follow your bariatric surgeons recommendations for advancing diet. 5. Dressing Change/Wound Care: Your incisions are covered with waterproof dressings. You can shower with these and pat dry. Do not rub over dressings or incisions. If the area is tender, you may apply an ice pack for short intervals (no more than 20 minutes on, followed by at least 20 minutes off). Do not apply heat. Do not use creams, lotions, or topical antibiotics unless instructed to do so by your surgeon. 6. Call your doctor if: - Your temperature exceeds 101.5 F - You experience excessive pain or swelling - You have an unexpected reaction to medication - You have excessive bleeding - You experience continued vomiting/nausea - Your incision begins to separate - Your incision shows signs of infection such as increased redness, swelling, excessive pain, heat, or drainage (light blood or clear fluid is normal) General instructions: No lifting greater than 10 lbs for the next 6 weeks[address] driving within 24 hours of taking narcotic pain medications. If you do not move your bowels in the next 2 days, please take milk of magnesia over the counter. Please follow the post op diet and do not advance your diet until you are seen in the office in about 2 weeks. Please walk around your home every hour or two to prevent blood clots from forming in your legs. You do not need to wake from sleeping to walk. Please sleep in a bed or couch to prevent kinking at the hips and knees. Please take your incentive spirometer (your lung team sports sales associate) home with you and use it for the next few days to prevent pneumonias. You may shower, no hot tubs, baths or swimming pools. Please call the office with any questions or concerns such as increasing abdominal pain, fever, chills, shortness of breath, chest pain, leg pain or swelling, or redness or drainage from your incisions. Please make sure you are consuming 40-60 ounces of total fluids per day. Avoid all carbonation. Do not hesitate to contact the office with any questions at . The patient's medical history has been reviewed and they are considered low risk for post op DVT and therefore DVT prophylaxis is not considered necessary. Travel after surgery was reviewed. The patient has not disclosed any travel plans during the first 30 days after surgery and they have been advised that within the first 30 days after surgery any bus, plane, train or car travel over 2 hours in duration is contraindicated due to the possibility of developing blood clots from immobility. Any travel, needs to include periods of ambulation of 10 minutes in duration every 2 hours.? The patient was instructed to discuss any plans for travel during this period with their bariatric surgeon. Assessment: s/p laparoscopic sleeve gastrectomy with gastropexy Discharge Date/Time: 12/20/24 10:04
[2024-12-19] MEDS: Acetaminophen 1,000 MG/100 ML PIGGYBACK 16.7 MG IV ×3 (11:46→22:54)
[2024-12-19 11:51] LABS: Hematocrit 40.7 % (42.0-52.0)
[2024-12-19 12:02] LABS: Anion Gap 13 (12-20); Blood Urea Nitrogen 13 mg/dL (9-16); Carbon Dioxide 24 mmol/L (22-29); Chloride 104 mmol/L (96-108); Creatinine Clr Calc Pharmacy 141.8; Estimated Glomerular Filt Rate > 60; Glucose Random 143 mg/dL (60-115); Potassium 4.2 mmol/L (3.3-5.1); Sodium 137 mmol/L (135-145)
--- NOTE | 2024-12-19 13:42 | PHA.MEDREC ---
Addendum entered by Julio Werner 12/19/24 13:46: reviewed Original Note: Pharmacy Consult ? Medication Reconciliation Pharmacy has reviewed the medication reconciliation done by nursing. Spoke to patient to confirm med list. Patient states was able to confirm all of his medications. Patient states he no longer takes Vitamin D 50,000units, and Miralax .
[2024-12-19] MEDS: Metoclopramide HCl 10 MG/2 ML VIAL IVPUSH (13:55)
--- NOTE | 2024-12-19 15:41 | PC.NURSE ---
Addendum entered by Marissa Kimble RN 12/19/24 17:16: Pt ambulating to bathroom independently , pt states pain improved . This RN encouraging patient to start phase 1 , Pt only having 1ML since arrival to unit at 1130. pt stating I just want to rest. Original Note: Pt arrived to unit pt states Im in a lot of pain . This RN walked pt around unit , pt able to burp up some gas . Pt educated on drinking water per phase 1. Pt in and out of bathroom pt removed the collection hat for measuring urine , Pt stating that he voided. pt not listening to this rn regarding plan of care . Pt appearing to just want to sleepand be left alone , and stating hes in pain . IV Dilaudid given due to Pt thrashing and rocking back and forth in bed , Pt removed compression boots , pt states Im hot . Dilaudid given with good effect . This RN will attempt further education.
[2024-12-19] MEDS: Famotidine/PF 20 MG/2 ML VIAL IVPUSH (20:04)
--- NOTE | 2024-12-19 23:44 | PC.NURSE ---
Patient with oral temp 100.0, hr 54, bp 167/79. Reporting pain level of 3 to abdomen, patient reporting tolerating pain at this time. Dr. Mayes made aware of patient's temp and elevated bp via tigerconnect.
[2024-12-20 01:05] VITALS: BP 149/67; PULSE 54; RESP 18; TEMP 37.4
[2024-12-20 03:12] VITALS: PULSE 59; RESP 18; TEMP 37.1; O2SAT 97
[2024-12-20 04:02] VITALS: BP 142/80
[2024-12-20] MEDS: Acetaminophen 1,000 MG/100 ML PIGGYBACK 16.7 MG IV (04:56)
[2024-12-20] MEDS: Lactated Ringers 1,000 ML 100 ML IVCONT (06:40)
[2024-12-20 07:13] VITALS: BP 155/92; PULSE 53; RESP 14; TEMP 36.4; O2SAT 97
[2024-12-20 07:33] LABS: MANUAL DIFF FLAG NO
[2024-12-20 07:59] LABS: Basophils Percent Auto 0.1 % (0-2); Eosinophils Percent Auto 0.1 % (0-4); Hematocrit 39.8 % (42.0-52.0); Hemoglobin 13.3 g/dl (14.0-18.0); Imm Gran Pct Auto 0.6 % (0.0-0.4); Lymphocytes Absolute Auto 1.4 X10*3/uL (1.2-4.9); Lymphocytes Percent Auto 8.7 % (20-40); Mean Corpuscular HGB Conc 33.4 g/dl (31.0-36.0); Mean Corpuscular Hemoglobin 26.2 pg (27.0-33.0); Mean Corpuscular Volume 78.5 fL (80.0-98.0); Mean Platelet Volume 11.5 fL (9.4-12.4); Monocytes Percent Auto 5.9 % (2-11); Neutrophils Percent Auto 84.6 % (45-73); Platelet Count 279 X10*3/uL (160-400); Red Blood Count 5.07 X10*6/uL (4.60-5.80); White Blood Count 16.5 X10*3/uL (4.8-10.8)
--- NOTE | 2024-12-20 08:02 | HO.POSTANES ---
Post Anesthesia Evaluation Post Anesthesia Evaluation Date of Service: 12/20/24 Vital Signs: Vital Signs Temp Pulse Resp BP Pulse Ox O2 Del Method 12/20/24 07:13 97.5 F 53 14 155/92 H 97 Room Air 12/20/24 04:02 142/80 H 12/20/24 03:12 98.8 F 59 18 97 Room Air 12/20/24 01:05 99.4 F 54 18 149/67 H 12/19/24 23:36 100.0 F 54 16 167/79 H 94 Room Air Anesthesia: General Endotracheal-GETA Mental Status: Awake Pain Control: Satisfactory Nausea/Vomiting: None Hydration: Adequate Anesthesia-Related Issues: No Anes. Related Issues
[2024-12-20 08:19] LABS: Anion Gap 14 (12-20); Blood Urea Nitrogen 9 mg/dL (9-16); Calcium 9.1 mg/dL (8.4-10.2); Carbon Dioxide 24 mmol/L (22-29); Chloride 106 mmol/L (96-108); Creatinine Clr Calc Pharmacy 176.9; Estimated Glomerular Filt Rate > 60; Glucose Random 96 mg/dL (60-115); Potassium 4.2 mmol/L (3.3-5.1); Sodium 140 mmol/L (135-145)
== END 2024-12-20 10:04 | disposition home or self-care (01) | DRG 621 ==
PROVIDERS: Physician Assistant Surgical; Admitting Provider Surgery; PCP Family Medicine; Visit Provider Surgery
PROC: 0DB64Z3 Excision of Stomach, Percutaneous Endoscopic Approach, Vertical (ICD-10-PCS; CPT 43845; principal; 2024-12-19 07:30)
DX: E66.01 Morbid (severe) obesity due to excess calories (principal); R73.03 Prediabetes; F90.9 Attention-deficit hyperactivity disorder, unspecified type; F41.8 Other specified anxiety disorders; Z68.34 Body mass index [BMI] 34.0-34.9, adult; Z79.899 Other long term (current) drug therapy
CPT/HCPCS: 36415; 80048; 85014; 85018; 85025; 86850; 86900; 86901; 88304; 88305; 88307; 88342; A4649; C9145; J0131; J0690; J1100; J1171; J1596; J1920; J2003; J2250; J2405; J2704; J2765; J2795; J3010; J7120

== ENCOUNTER → 2024-12-19 07:30 | Outpatient (BNV) | payer OTHER, SELFPAY | PROVIDERS: Admitting Provider Surgery; PCP Family Medicine; Visit Provider Surgery | DX: E66.813 Obesity, class 3 (principal); Z13.39 Encounter for screening examination for other mental health and behavioral disorders; F41.8 Other specified anxiety disorders; R73.03 Prediabetes | CPT/HCPCS: 43659; 43775; 99024; 99499 ==

== ENCOUNTER 2024-12-25 08:34 | Outpatient (AMB) | payer OTHER, SELFPAY ==
--- NOTE | 2024-12-25 08:30 | A.OFFWM_ITS ---
Intake Intake Visit Reasons: TV PO LSG 12/19/24 Allergies No Known Allergies Allergy (Verified 12/19/24 06:32) PFSH Medical History ADHD Marijuana use Morbid obesity Acute eczema Surgical History History of esophagogastroduodenoscopy (EGD) No pertinent past surgical history Family History Father Substance abuse in family Social History Household Members: None Both parents involved: No Caregiver staying overnight: No Housing: House Are you a primary career counselor to a significant other at home: No Do you presently have visiting nurse or other home services: No 75 years or older and lives alone: No Alcohol intake: never Patient Tobacco Use Status: Never used Tobacco e-Cigarette/Vaping Use: Never Used Substance Use Type: Marijuana Special ladarius needs: No service: No Current occupational status: employed 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 He denies experiencing any pain or concerns related to the surgery. He is currently following a liquid diet and states he is doing ?pretty well? as long as he follows the doctor?s instructions. He also shared that his oldest daughter has been helping him during his recovery. Objective: The patient attended a behavioral health post-operative follow-up via telehealth, as part of the Surgical Weight Loss Program designed to offer continued support throughout the recovery process. * PHQ-9 was administered; results indicate no current concerns. * Discussed current functioning, post-op routine, and emotional well-being. * Reviewed recovery goals and strategies to maintain motivation and progress. * Reinforced the importance of adhering to the meal and exercise plans outlined by the Weight Management Program (WMP) team. * Encouraged ongoing communication about any difficulties or changes in status. Assessment/Response: * Mental Status: Within normal limits (WNL) * Risk reported/identified: None. PHQ-9: Score indicates no current concerns. Food/Weight/Diet Expectations of change Initial weight: 320 Lbs Weight on day of surgery 12/19/24: 266 Lbs Post-op weight on 12/24/24: 254 lbs. . Meal plan: 3 shakes. Using syringe. Exercise: None yet. Questionnaires PHQ-9 Over the last 2 weeks, how often have you been bothered by any of the following problems? 1. Little interest or pleasure in doing things: not at all 2. Feeling down, depressed, or hopeless: not at all 3. Trouble falling or staying asleep, or sleeping too much: not at all 4. Feeling tired or having little energy: not at all 5. Poor appetite or overeating: not at all 6. Feeling bad about yourself - or that you are a failure or have let yourself or your family down: not at all 7. Trouble concentrating on things, such as reading the newspaper or watching television: not at all 8. Moving or speaking so slowly that other people could have noticed. Or the opposite - being so fidgety or restless that you have been moving around a lot more than usual: not at all 9. Thoughts that you would be better off or of hurting yourself in some way: not at all Total score: 0 Depression Screening Interpretation: Negative Depression Screening Done: Yes 37131 - PHQ-9 Billing: Yes Source: Developed by Drs. Sabas Barnard, Dayana Chiang, Charles Jonas and colleagues, with an educational salma from [employer]. Assessment & Plan Assessment & Plan (1) Adjustment disorder, unspecified: Code(s): F43.20 - Adjustment disorder, unspecified (2) Problems related to inappropriate diet and eating habits: Code(s): Z72.4 - Inappropriate diet and eating habits Plan The patient reports feeling well and does not wish to schedule a follow-up at this time. He was advised to reach out and request an appointment if any behavioral health needs arise during his recovery. Participation in the post-operative peer support group was recommended, as well as joining the program?s Facebook group to stay connected with additional resources and community support. Telehealth Telehealth Telehealth Platform: [employer] Location of provider rendering services: other Location of patient: address on file Patient Identification confirmed using: Name, : Yes Telehealth method: voice only Patient verbally consented to treatment: Yes Patient verbally consented to billing insurance company: Yes Patient informed of any privacy concerns related to visit: Yes Minutes spent on Phone/Video with Pt.: 30 Coding Level of Care Code Established Pt Tele Psytx 30 mins (76362) Patient Type Established Diagnoses Adjustment disorder, unspecified F43.20 Problems related to inappropriate diet and eating habits Z72.4 Additional Codes PHQ-9 - 40557 - PHQ-9 Billing: Yes ([id number]) Time Spent (min) 30
== END 2024-12-25 09:09 | disposition home or self-care (01) ==
LOC: HO.HBST 08:34
PROVIDERS: PCP Family Medicine; Visit Provider Counselor Mental Health
DX: F43.20 Adjustment disorder, unspecified (principal); Z72.4 Inappropriate diet and eating habits
CPT/HCPCS: 90832

== ENCOUNTER 2024-12-27 10:56 | Outpatient (AMB) | payer OTHER, SELFPAY ==
--- NOTE | 2024-12-27 11:14 | A.OFFPC_ITS ---
Vital Signs 12/27/24 11:18 Height 6 ft 2 in Weight 257 lb 2 oz BMI 33.0 BP 114/80 Blood Pressure Location Lt brachial Position Sitting Respiration 10 L Pulse 93 Pulse Source Pulse Oximeter Temp 97.9 F Temp Source Oral Pulse Oximetry (%) 98 Oxygen Delivery Method Room Air Intake Visit Reasons: [facility] Intake Note: patient is scheduled for gastric sleeve post-op follow up Collar Folder Operator Required: No Allergies No Known Allergies Allergy (Verified 12/27/24 11:17) Tobacco use date assessed: 02/01/24 Dental Screening Dental Screen Date: 02/01/24 HPI [facility] HPI Details 38 y/o male presents to f/u s/p laparosc opic sleeve gastrectomy. Weight today 257 lbs, down about 75 lbs. He notes he feels well. Has started exercising today. Blood pressure today 114/80, 93p. He is not on any blood pressure medicine. HPI Comments History of Present Illness Details Documentation assistance for Gregory Muñiz MD, was provided by Donal Smith,? Roofing Applicator on 12/27/2024 at 11:36 AM EST. I, Dr. Muñiz, have read, observed, and verified documentation. ?? [facility] Medical History ADHD Marijuana use Morbid obesity Acute eczema Surgical History History of esophagogastroduodenoscopy (EGD) No pertinent past surgical history Family History Father Substance abuse in family Social History Household Members: None Both parents involved: No Caregiver staying overnight: No Housing: House Are you a primary cna caregiver to a significant other at home: No Do you presently have visiting nurse or other home services: No 75 years or older and lives alone: No Alcohol intake: never Patient Tobacco Use Status: Never used Tobacco e-Cigarette/Vaping Use: Never Used Substance Use Type: Marijuana Special ladarius needs: No service: No Current occupational status: employed 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 1. Little interest or pleasure in doing things: not at all 2. Feeling down, depressed, or hopeless: not at all 3. Trouble falling or staying asleep, or sleeping too much: not at all 4. Feeling tired or having little energy: not at all 5. Poor appetite or overeating: not at all 6. Feeling bad about yourself - or that you are a failure or have let yourself or your family down: not at all 7. Trouble concentrating on things, such as reading the newspaper or watching television: not at all 8. Moving or speaking so slowly that other people could have noticed. Or the opposite - being so fidgety or restless that you have been moving around a lot more than usual: not at all 9. Thoughts that you would be better off or of hurting yourself in some way: not at all Total score: 0 Source: Developed by Drs. Sabas Barnard, Dayana Chiang, Charles Jonas and colleagues, with an educational salma from [employer]. Thrive Questionnaire Date Thrive assessed: 11/01/24 I am a: Patient What is your living situation today?: I have a steady place to live Within the past 12 months, did the food you bought not last and you didn't have the money to get more?: Never true Within the past 12 months, did you worry whether your food would run out before you got money to buy more?: Never true Do you have trouble paying for medicines?: No Do you have trouble getting transportation to medical appointments?: No Do you have trouble paying your heating and electricity bill?: No Do you have trouble taking care of your child, family member or friend?: No Do you have trouble with day-to-day activities such as bathing, preparing meals, shopping, managing finances, etc.?: No Are you currently unemployed and looking for a job?: No Are you interested in more education?: No Please select the resources that you would like help with: None Currently or been in a relationship where the following occur: No concerns reported THRIVE Score: 0 YOVANY-7 AMB Questionnaire YOVANY-7 Date YOVANY - 7 assessed: 08/12/24 Trouble relaxin = Not at all Source: Developed by Drs. Sabas Barnard, Dayana Chiang, Charles Jonas and colleagues, with an educational salma from [employer]. Review of Systems Const Denies chills, Denies fatigue, Denies fever(s), Denies headache(s) and Denies weakness ENT Denies dizziness and Denies headache(s) Card Denies dyspnea Resp Denies cough, Denies dyspnea, Denies wheezing and Denies other (shortness of breath) Musc Denies numbness and Denies tingling Neuro Denies dizziness, Denies headache(s), Denies numbness, Denies tingling and Denies weakness Psych Denies anxiety and Denies depression Endo Denies fatigue Aller/Immun Denies wheezing Physical exam (Primary Care) Vital Signs: Last Vital Signs Temp 97.9 F 12/27/24 11:18 Pulse 93 12/27/24 11:18 Resp 10 L 12/27/24 11:18 BP 114/80 12/27/24 11:18 Pulse Ox 98 12/27/24 11:18 Oxygen Delivery Method Room Air 12/27/24 11:18 BMI result Body Mass Index 33.0 Tobacco/Smoking Status: Tobacco use Status Tobacco use date assessed 02/01/24 12/27/24 11:21 Patient Tobacco Use Status Never used Tobacco 12/27/24 11:21 e-Cigarette/Vaping Use Never Used 12/27/24 11:21 PHQ-9: PHQ-9 Score PHQ-9: Total score 0 12/27/24 11:29 Thrive Assessment: Date of Thrive Assessment Date Thrive assessed 11/01/24 12/27/24 11:21 Currently or been in a relationship where the following occur: No concerns reported Const General: well developed; No acute distress Nutritional Appearance: well nourished and obese Orientation/consciousness: patient oriented x3 HENMT Head: Yes normocephalic and Yes atraumatic Eyes General: appearance normal, both eyes and all related structures Pupils: Equal, round and reactive pupils present EOM: EOMs intact bilaterally Resp Effort & Inspection: normal respiratory effort Auscultation: clear to auscultation bilaterally Cardio Rate: regular rate Rhythm: regular rhythm Heart sounds: S1 normal heart sound present, S2 normal heart sound present, no gallops, no murmurs and no rubs Neuro General: patient oriented x3 and gait normal Cranial nerves: Yes Equal, round and reactive pupils present Psych Affect: normal affect Coding Level of Care Code Est Pt Level 4 (59611) Diagnoses S/P laparoscopic sleeve gastrectomy Z98.84 Nicotine dependence F17.200 Eczema L30.9 Assessment & Plan Assessment & Plan (1) S/P laparoscopic sleeve gastrectomy: Code(s): Z98.84 - Bariatric surgery status Category: Surgical Plan: Pt underwent an uneventful laparoscopic sleeve gastrectomy with gastropexy 12/19/24. Feeling?well?s/p?surgery. Has?lost?about?13?lb?since?the?surgery Has?lost?about?75?lb?since starting?program; he?weighed 332?lb?in?06/30/2024?and?is?now?at?257?lb Tolerating?water?and?protein?shakes?as?prescribed No?significant?nausea No?fevers?or?chills Wounds?are?healing?well. All?sounds?present?exam Doing?well.??Follow-up?with?bariatric?surgery?team?as?recommended (2) Nicotine dependence: Code(s): F17.200 - Nicotine dependence, unspecified, uncomplicated Category: Medical Plan: Patient?would?like?help?with?quitting?vaping. He?would?like?to?find?a?program?that has?counselling?and?accountability. Referred?him?to?the?nurse?navigator?program (3) Eczema: Code(s): L30.9 - Dermatitis, unspecified Category: Medical Plan: Erythema?and?cracking?of?skin?on?bilateral?hands. He?is?using?moisturizing?cream Will?give?him?a?steroid?cream?as?well.??Patient?is?requesting?referral?to?Dermat ology.??Referred. Plan Patient?also?requests?referral?to?urology?to?consult?for?vasectomy.??Referred Orders: Referrals Urology Referral Z30.09 - Encounter for other general counseling and advice on contraception Nurse Navigator Referral F17.200 - Nicotine dependence, unspecified, uncomplicated Dermatology Referral L30.9 - Dermatitis, unspecified Medications: New betamethasone dipropionate 0.05% 1 appl topical BID 14 days PRN 45 grams 1RF skin irritation
[2024-12-27 11:18] VITALS: BP 114/80; PULSE 93; RESP 10; TEMP 36.6; O2SAT 98; BMI 33.0
== END 2024-12-27 13:54 | disposition home or self-care (01) ==
LOC: HO.HMCFM 10:57
PROVIDERS: PCP Family Medicine; Visit Provider Family Medicine
DX: Z98.84 Bariatric surgery status (principal); F17.200 Nicotine dependence, unspecified, uncomplicated; L30.9 Dermatitis, unspecified

== ENCOUNTER → 2024-12-27 10:56 | Outpatient (BNVA) | payer OTHER, SELFPAY | PROVIDERS: PCP Family Medicine; Visit Provider Family Medicine | DX: Z13.89 Encounter for screening for other disorder (principal) ==

== ENCOUNTER 2024-12-27 13:33 | Outpatient (AMB) | payer OTHER, SELFPAY ==
--- NOTE | 2024-12-27 13:39 | MHC.OFFVISWM ---
VS Expanded 12/27/24 13:51 BP 121/71 Blood Pressure Location Rt brachial Blood Pressure Position Sitting Pulse 83 Pulse Source Pulse Oximeter Temp 97.1 F Temperature Source Temporal Artery Scan Pulse Oximetry 97 Oxygen Delivery Method Room Air Height 6 ft 2 in Weight 252 lb 6.4 oz BMI 32.4 Body Fat % 26.5 Body Fat Mass 66.8 Fat Free Mass 185.4 Visceral Fat Rating 11.0 Body Water % 53.1 Body Water Mass 133.8 Muscle Mass/Score 176.4 Basal Metabolic Rate/Score 2,533 Intake Visit Reasons: (OV) PO LSG 12/19/24 Allergies No Known Allergies Allergy (Verified 12/27/24 13:53) HPI Comments Details: 38-year-old male returns to the office today in follow-up. He is 8 days post sleeve gastrectomy performed on 12/19/2024. Tolerating 3 aldi elevation ready to drink shakes per day approximately 40 oz of water. He has moved his bowels. Has no complaints of pain. [facility] Medical History (Updated 12/27/24 @ 11:46 by Donal Smith) BMI 34.0-34.9,adult ADHD Marijuana use Morbid obesity Acute eczema Surgical History History of esophagogastroduodenoscopy (EGD) No pertinent past surgical history Family History Father Substance abuse in family Social History Household Members: None Both parents involved: No Caregiver staying overnight: No Housing: House Are you a primary dialysis patient care technician to a significant other at home: No Do you presently have visiting nurse or other home services: No 75 years or older and lives alone: No Alcohol intake: never Patient Tobacco Use Status: Never used Tobacco e-Cigarette/Vaping Use: Never Used Substance Use Type: Marijuana Special ladarius needs: No service: No Current occupational status: employed 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 Original weight on 08/28/2024 was 320.1 pounds and op weight was 274.3 pounds. Be sure to text Dr Mayes exactly 1 week after surgery your weight from your home scale so he can adjust your meal plan. Continue meal plan until f/u ashish Carvalho in 2 weeks May shower, no submersion in bath for another week Continue abdominal binder with activity and exercise for the next 2 weeks. Exercise prior to surgery was treadmill and rowing and may resume No abdominal exercises for 6 weeks post operatively Will be emailed link to post op video for review Reminded of the pace of drinking, 2 mL per minute, 1 oz/15 min.
[2024-12-27 13:51] VITALS: BP 121/71; PULSE 83; TEMP 36.2; O2SAT 97; BMI 32.4
== END 2024-12-27 14:22 | disposition home or self-care (01) ==
LOC: HO.HBS 13:34
PROVIDERS: PCP Family Medicine; Visit Provider Physician Assistant Surgical
DX: Z98.84 Bariatric surgery status (principal)
CPT/HCPCS: 99024

== ENCOUNTER 2025-01-15 13:31 | Outpatient (AMB) | payer OTHER, SELFPAY ==
--- NOTE | 2025-01-15 13:34 | A.OFFVIS_ITS ---
VS Expanded 01/15/25 13:45 BP 139/75 Blood Pressure Location Rt brachial Blood Pressure Position Sitting Pulse 94 Pulse Source Pulse Oximeter Temp 97.2 F Temperature Source Temporal Artery Scan Pulse Oximetry 97 Oxygen Delivery Method Room Air Height 6 ft 2 in Weight 243 lb BMI 31.2 Body Fat % 23.2 Body Fat Mass 56.4 Fat Free Mass 186.6 Visceral Fat Rating 10.0 Body Water % 56.2 Body Water Mass 136.4 Muscle Mass/Score 177.4 Basal Metabolic Rate/Score 2,530 Intake Visit Reasons: (OV) PO LSG 12/19/24 Chipper Required: No Allergies No Known Allergies Allergy (Verified 01/15/25 13:39) Medication List - Last Reconciled 01/15/25 by [facility] [employer] betamethasone dipropionate 0.05% 1 appl topical BID PRN 14 days pantoprazole 40 mg PO DAILY sucralfate 10 mL PO BID HPI Comments Details: This?a?33?yo male who is s/p LSG without hiatal hernia repair on?12/19/2024. Presents for 1 month post op visit. Weight today is 243 pounds, with a BMI of 31.2. There has been a 77.1 pound weight loss,(initial weight 320.1 pounds) since starting the program on 08/28/2024 reflecting a 24 % total body weight loss and a weight loss of 31.3 pounds since surgery (operative weight 274.3 pounds) reflecting a 11.4 % TBWL since surgery. No complaints of nausea, emesis, abdominal pain or reflux. Reports infrequent but normal bowel movements every 2-3 days and uses stool softeners regularly. The meal plan that was recommended by Dr. Mayes as listed below. Patient states that he is doing 2 whole ready to drink shakes per day most days of the week, sometimes 3 shakes per day. On the days that he drinks 2 shakes he may have 2 forks fulls of protein such as chicken or eggs. He states that he feels very well and has no complaints. He does note that this is not the recommended plan. Present meal plan includes: Elevation RTD shake 30 gm 8-11, 12-3 4-6 pm 4 oz w 4 oz almond milk atkins bar 7-10 Drinking 40 oz water daily ? Exercise routine includes: rowing machine 5-7 days per week 400 calories per session [facility] Medical History (Updated 12/28/24 @ 00:02 by Chana Love) BMI 34.0-34.9,adult ADHD Marijuana use Morbid obesity Acute eczema Surgical History S/P laparoscopic sleeve gastrectomy History of esophagogastroduodenoscopy (EGD) Family History Father Substance abuse in family Social History Household Members: None Both parents involved: No Caregiver staying overnight: No Housing: House Are you a primary geriatric personal care aide to a significant other at home: No Do you presently have visiting nurse or other home services: No 75 years or older and lives alone: No Alcohol intake: never Patient Tobacco Use Status: Never used Tobacco e-Cigarette/Vaping Use: Never Used Substance Use Type: Marijuana Special ladarius needs: No service: No Current occupational status: employed 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 He was encouraged to text with Dr. Mayes should he not wish to follow the plan or if he has any problems with the plan. Encouraged to continue to text weekly his weight is and with questions. Continue exercise as he is doing. Return to clinic 1 month.
[2025-01-15 13:45] VITALS: BP 139/75; PULSE 94; TEMP 36.2; O2SAT 97; BMI 31.2
== END 2025-01-15 14:11 | disposition home or self-care (01) ==
LOC: HO.HBS 13:32
PROVIDERS: PCP Family Medicine; Visit Provider Physician Assistant Surgical
DX: Z98.84 Bariatric surgery status (principal)
CPT/HCPCS: 99024

== ENCOUNTER → 2025-01-15 13:31 | Outpatient (BNVA) | payer OTHER, SELFPAY | PROVIDERS: PCP Family Medicine; Visit Provider Physician Assistant Surgical ==

== ENCOUNTER 2025-02-07 15:55 | Outpatient (REF) | payer OTHER, SELFPAY ==
[2025-02-10 12:49] LABS: Microalbum/Creatinine Ratio Ur 4.6 ug/mg cr (<30)
== END 2025-02-07 15:56 | disposition home or self-care (01) ==
LOC: HO.WFDLDS 15:55
PROVIDERS: Referring Provider Nurse Practitioner Family; Visit Provider Family Medicine
DX: R73.03 Prediabetes (principal); E66.813 Obesity, class 3; D64.9 Anemia, unspecified
CPT/HCPCS: 82043; 82570

== ENCOUNTER 2025-02-14 09:30 | Outpatient (AMB) | payer OTHER, SELFPAY ==
--- NOTE | 2025-02-14 08:52 | MHC.OFFVISWM ---
VS Expanded 02/14/25 08:53 Height 6 ft 2 in Weight 227 lb 6 oz BMI 29.2 Body Fat % 16.4 Fat Free Mass 190.2 Visceral Fat Rating 11 Body Water % 60.4 Muscle Mass/Score 180.6 Basal Metabolic Rate/Score 2,243 Intake Visit Reasons: (TV) PO LSG 12/19/24 Supervisor Extruding Department Required: No Allergies No Known Allergies Allergy (Verified 01/15/25 13:39) HPI Comments Details: This?a?39?yo male who is s/p LSG without hiatal hernia repair on?12/19/2024. Presents for 2 month post op visit. Weight today is 227.6 pounds, with a BMI of 29.2. There has been a 92.5 pound weight loss,(initial weight 320.1 pounds) since starting the program on 08/28/2024 reflecting a 28.8 % total body weight loss and a weight loss of 46.7 pounds since surgery (operative weight 274.3 pounds) reflecting a 17 % TBWL since surgery. No complaints of nausea, emesis, abdominal pain or reflux. Reports infrequent but normal bowel movements every 2-3 days and uses stool softeners regularly. He reports that he is doing very well. The meal plan that was recommended by Dr. Mayes as listed below. Patient states that he is doing 2 whole ready to drink shakes per day most days of the week, sometimes 3 shakes per day. On the days that he drinks 2 shakes he may have 2 forks fulls of protein such as chicken or eggs. He states that he feels very well and has no complaints. He does note that this is not the recommended plan. Present meal plan includes: Elevation RTD shake 30 gm 8-10, 12-3 4-6 pm 6 oz shake atkins bar 7-10 Drinking 64 oz water daily ? Exercise routine includes: rowing machine 5 days per week 400 calories per session body weight exercises [facility] Medical History (Updated 12/28/24 @ 00:02 by Chana Love) BMI 34.0-34.9,adult ADHD Marijuana use Morbid obesity Acute eczema Surgical History S/P laparoscopic sleeve gastrectomy History of esophagogastroduodenoscopy (EGD) Family History Father Substance abuse in family Social History Household Members: None Housing: House Are you a primary physician locums urgent care to a significant other at home: No Do you presently have visiting nurse or other home services: No Alcohol intake: never Patient Tobacco Use Status: Never used Tobacco e-Cigarette/Vaping Use: Never Used Substance Use Type: Marijuana Special ladarius needs: No service: No Current occupational status: employed 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 Cognitive needs: No Hearing needs: No Vision needs: No Telehealth Telehealth Telehealth Platform: Telephone Location of provider rendering services: practice address Location of patient: other Patient Identification confirmed using: Name, : Yes Telehealth method: voice only Patient verbally consented to treatment: Yes Patient verbally consented to billing insurance company: Yes Patient informed of any privacy concerns related to visit: Yes Minutes spent on Phone/Video with Pt.: 10 Assessment & Plan Assessment & Plan (1) S/P laparoscopic sleeve gastrectomy: Code(s): Z98.84 - Bariatric surgery status Category: Surgical Plan: Overall, the patient is doing well. He would like to change his meal plan to go back to what he was doing prior to surgery which included 2 shakes and a small meal. I have instructed him to have 1 hole shake in the morning, 1/2 shake, 6 oz with 2 oz of unsweetened almond milk at lunchtime and a meal at night starting with 4 forks of protein and 4 forks of vegetables, cooked. Cooked vegetables to include broccoli or cauliflower. We will have him return to the office in approximately 1 month
[2025-02-14 08:53] VITALS: BMI 29.2
== END 2025-02-14 10:08 | disposition home or self-care (01) ==
LOC: HO.HBS 09:40
PROVIDERS: PCP Family Medicine; Visit Provider Physician Assistant Surgical
DX: Z98.84 Bariatric surgery status (principal)
CPT/HCPCS: 99024

== ENCOUNTER 2025-03-07 15:54 | Outpatient (AMB) | payer OTHER, SELFPAY ==
[2025-03-07 16:13] VITALS: BP 92/60; PULSE 64; TEMP 36.6; O2SAT 96; BMI 29.7
--- NOTE | 2025-03-07 16:13 | AM.OFFWIN_ITS ---
Intake Vital Signs 03/07/25 16:13 Height 6 ft 2 in Weight 231 lb BMI 29.7 BP 92/60 Blood Pressure Location Rt brachial Position Sitting Pulse 64 Pulse Source Pulse Oximeter Temp 97.9 F Temp Source Oral Pulse Oximetry (%) 96 Oxygen Delivery Method Room Air Intake Visit Reasons: EP Eczema on hands Intake Note: pt reports an eczema flare on hands Patient Tobacco Use Status: Never used Tobacco Allergies No Known Allergies Allergy (Verified 03/07/25 16:13) Do you need a note to return to daycare/school/sports/work: No HPI HPI Comments History of Present Illness Details History of Present Illness - The patient is a 39-year-old male pres enting with eczema on both hands, chronic problem. - The patient has a history of eczema, p reviously treated with betamethasone cream prescribed by Dr. Muñiz, which was not obtained due to insurance issues. - The current outbreak is located on the hands, with symptoms of itching that were severe until the previous night. - The patient reports that the condition is currently improving, but he seeks a new cream that is covered by insurance. Physical Exam General: Cooperative, healthy appearing, comfortable, no acute distress and well developed Orientation: Patient oriented x3 Limitations: No limitations Head: Normal to inspection Ears: Hearing grossly normal bilaterally Nose: Normal External nose present Face and sinus: Normal facial exam Eyes: Appearance normal, both eyes and all related structures Neck: Normal visual inspection and Yes full ROM Respiratory: Normal respiratory effort and able to speak in complete sentences. Skin: small patches of dry skin on bilateral hands, covering 10% of hands Neuro: Patient oriented x3 Extremities: Normal to inspection [facility] Medical History (Updated 03/07/25 @ 16:25 by Jesica Gannon PA-C) BMI 34.0-34.9,adult ADHD Marijuana use Morbid obesity Acute eczema Surgical History S/P laparoscopic sleeve gastrectomy History of esophagogastroduodenoscopy (EGD) Family History Father Substance abuse in family Social History Household Members: None Both parents involved: No Caregiver staying overnight: No Housing: House Are you a primary career development coordinator to a significant other at home: No Do you presently have visiting nurse or other home services: No 75 years or older and lives alone: No Alcohol intake: never Patient Tobacco Use Status: Never used Tobacco e-Cigarette/Vaping Use: Never Used Substance Use Type: Marijuana Special ladarius needs: No service: No Current occupational status: employed 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 - Recommend Benadryl at night to help with itching. - Ensure prescription is sent to [facility] on [address] [facility] in [place] for patient convenience. Patient was informed and verbally consented to the use of an ambient scribe for clinic note documentation during this visit. Medications: New triamcinolone acetonide 0.1% 1 appl topical BID 30 grams 0RF Coding Level of Care Code Est Pt Level 3 (52495) Diagnoses Eczema of both hands L30.9
== END 2025-03-07 16:47 | disposition home or self-care (01) ==
PROVIDERS: PCP Family Medicine; Visit Provider Physician Assistant
DX: L30.9 Dermatitis, unspecified (principal)

== ENCOUNTER → 2025-03-07 15:54 | Outpatient (BNVA) | payer OTHER, SELFPAY | PROVIDERS: PCP Family Medicine; Visit Provider Physician Assistant | DX: Z13.89 Encounter for screening for other disorder (principal) ==

== ENCOUNTER 2025-03-19 14:07 | Outpatient (AMB) | payer OTHER, SELFPAY ==
--- NOTE | 2025-03-19 14:14 | MHC.OFFVIS ---
Intake Visit Reasons: vasectomy consult Intake Note: Patient is present for VASECTOMY CONSULT Urology Medication:NONE Antibiotic Allergy:NONE Blood Thinner:NONE Resaw Carriage Operator Required: No Allergies No Known Allergies Allergy (Verified 03/19/25 14:15) HPI Comments Details: Petey is a very pleasant male. He is a patient of Dr. Muñiz. He is seen for the following urologic condition - anxiety about health - Vasectomy evaluation Vasectomy evaluation The patient presents for vasectomy consultation. He is currently He has fathered - 2 child, with a single partner. The youngest child is - 3 years old. His partner is aware and permissive for a vasectomy Current form of control is barrier. Currently works as The vasectomy may be complicated due to a history of no complicating issues, inguinal hernia repair, orchidopexy, history of orchitis, orchiectomy. Patient education has been provided via AUA video, via printed information, risks of failure, recovery time, bruising and potential pain syndrome have been stressed Discussion today focused on the presence of vasectomy and the risks, benefits and alternatives that are available. Vasectomy as intended as a permanent form of control. Printed information and literature was provided to the patient. Overall there is a one in 2500 failure rate. This can occur at any time after vasectomy. Risks were discussed highlighting hematoma, spermatocele, epididymal congestion, development of sperm antibodies, and development of chronic pain estimated between 1-5%. The procedure was reviewed in detail. Anatomical diagrams of the male genitalia were used to explain the location of the vas deferens. The vas deferens will be transected, the proximal end will be cauterized, a metal clip would be applied to separate the 2 vas deferens ends. It was explained the procedure will be done in the office and takes approximately 10-15 minutes. Less common problems that arise with vasectomy include hematoma, bleeding, allergic reaction to anesthetic, epididymal infection, epididymal congestion, scrotal discomfort, spermatic leak, spermatic granuloma and the possibility of antisperm antibodies. He understands these risks and wishes to proceed. Consent was signed at the office today. He also understands that it takes 12 weeks for sperm to fully clear the system. He will need to provide a semen sample at 12 weeks and if this is not clear a 2nd sample at 16 weeks. Medical clearance to stop using protection will only be provided if he satisfies published criteria for sperm clearance. PFSH Medical History (Updated 03/19/25 @ 15:04 by Osei Fitzpatrick MD) BMI 34.0-34.9,adult ADHD Marijuana use Morbid obesity Acute eczema Surgical History S/P laparoscopic sleeve gastrectomy History of esophagogastroduodenoscopy (EGD) Family History Father Substance abuse in family Social History Household Members: None Both parents involved: No Caregiver staying overnight: No Housing: House Are you a primary manager progressive care to a significant other at home: No Do you presently have visiting nurse or other home services: No 75 years or older and lives alone: No Alcohol intake: never Patient Tobacco Use Status: Never used Tobacco e-Cigarette/Vaping Use: Never Used Substance Use Type: Marijuana Special ladarius needs: No service: No Current occupational status: employed 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 Cognitive needs: No Hearing needs: No Vision needs: No Review of Systems Const Denies chills and Denies fever(s) Card Reports no additional complaints and Denies syncope Resp Denies cough GI Denies abdominal pain and Denies heartburn Reports as per HPI and Denies change in libido Neuro Denies syncope Psych Denies change in libido Endo Denies change in libido Physical Exam Const General: cooperative, healthy appearing, comfortable and no acute distress Orientation/consciousness: patient oriented x3 HEENT Face and sinus: Yes normal facial exam Mouth: moist mucous membranes Neck Neck: Yes normal visual inspection, Yes full ROM and Yes trachea midline Chest Chest palpation & inspection: normal inspection of the chest Resp Effort & Inspection: normal respiratory effort, able to speak in complete sentences and no respiratory distress GI Inspection: Yes normal to inspection Back/Spine/Pelvis Cervical Spine: normal cervical lordosis Thoracic/Lumbar Spine: thoracic and lumbar spine normal to inspection Skin General skin exam: no rashes or lesions noted Neuro General: patient oriented x3, gait normal, tone normal and moves all extremities Extrem General: Yes normal to inspection and Yes capillary refill normal Assessment & Plan Assessment & Plan (1) Anxiety about health: Code(s): R45.89 - Other symptoms and signs involving emotional state Category: Medical (2) Encounter for vasectomy counseling: Code(s): Z. - Encounter for other general counseling and advice on contraception Category: Medical Plan Schedule vasectomy Medications: New diazepam Take medication after arrival at office 2 mg PO BID PRN 2 tabs 0RF anxiety 1 day R45.89 - Other symptoms and signs involving emotional state tramadol 50 mg PO Q8H PRN 7 tabs 0RF pain N43.3 - Hydrocele, unspecified, R45.89 - Other symptoms and signs involving emotional state Patient Instructions: This note is constructed using voice recognition software. While every effort has been made to ensure accuracy neuro psych sales specialist errors may have been included. Imaging studies, laboratory and physical exam results were discussed and reviewed in detail. No major barriers to patient understanding were identified. An opportunity to ask questions regarding the treatment plan was provided. All questions were answered. The patient expressed understanding and agreement with the above treatment plan. The patient is aware they should contact our office by phone for worsening of their current condition or the appearance of new urologic symptoms. Compliance is encouraged with any medications and followup testing that is ordered. It is a privilege to participate in the urologic care of your patient. If you have any questions or concerns regarding treatment for the above conditions, or other urologic issues, please do not hesitate to contact me. The office telephone contact is [phone]. Sincerely, Dr Osei Fitzpatrick MD, [facility] - Urology Compassionate Specialist Care for the Genitourinary System Coding Level of Care Code New Pt Level 4 (65276) Diagnoses Anxiety about health R45.89 Encounter for vasectomy counseling Z30.
== END 2025-03-19 15:08 | disposition home or self-care (01) ==
LOC: HO.HUSH 14:08
PROVIDERS: PCP Family Medicine; Visit Provider Urology
DX: R45.89 Other symptoms and signs involving emotional state (principal); Z30.09 Encounter for other general counseling and advice on contraception
CPT/HCPCS: 99204

== ENCOUNTER 2025-03-28 09:30 | Outpatient (AMB) | payer OTHER, SELFPAY ==
--- NOTE | 2025-03-28 08:16 | A.OFFVIS_ITS ---
VS Expanded 03/28/25 08:18 Height 6 ft 2 in Weight 215 lb 8 oz BMI 27.7 Body Fat % 15.2 Fat Free Mass 183 Visceral Fat Rating 10 Body Water % 61.2 Muscle Mass/Score 173.8 Basal Metabolic Rate/Score 2,144 Intake Visit Reasons: (TV) PO LSG 12/19/24 Food Processor Required: No Allergies No Known Allergies Allergy (Verified 03/19/25 14:15) Medication List - Last Reconciled 03/28/25 by GRZEGORZ Church dextroamphetamine-amphetamine 10 mg (Adderall) 10 mg PO BID 30 days diazepam 2 mg PO BID PRN 1 day tramadol 50 mg PO Q8H PRN triamcinolone acetonide 0.1% 1 appl topical BID HPI Comments Details: This?a?39?yo male who is s/p LSG without hiatal hernia repair on?12/19/2024. Presents for 3 month post op visit. Weight today is 215.8 pounds, with a BMI of 27.7. There has been a 104.3 pound weight loss,(initial weight 320.1 pounds) since starting the program on 08/28/2024 reflecting a 32.5 % total body weight loss and a weight loss of 58.5 pounds since surgery (operative weight 274.3 pounds) reflecting a 21.3 % TBWL since surgery. No complaints of nausea, emesis, abdominal pain or reflux. Reports infrequent but normal bowel movements every 2-3 days and uses stool softeners regularly. He reports that he is doing very well. At his last visit, approximately 1 month ago, he wished to have his meal plan changed to utilize 2 shakes and 1 meal. Present meal plan includes: Elevation RTD shake 30 gm 8-10 12-2 pm 6 oz shake meal with 4 forks protein and 4 forks veg Drinking 64 oz water daily ? Exercise routine includes: rowing machine 5 days per week 300 calories per session body weight exercises - squat, push up, plank, PFSH Medical History BMI 34.0-34.9,adult ADHD Marijuana use Morbid obesity Acute eczema Surgical History S/P laparoscopic sleeve gastrectomy History of esophagogastroduodenoscopy (EGD) Family History Father Substance abuse in family Social History Household Members: None Both parents involved: No Caregiver staying overnight: No Housing: House Are you a primary healthcare network pricing consultant to a significant other at home: No Do you presently have visiting nurse or other home services: No 75 years or older and lives alone: No Alcohol intake: never Patient Tobacco Use Status: Never used Tobacco e-Cigarette/Vaping Use: Never Used Substance Use Type: Marijuana Special ladarius needs: No service: No Current occupational status: employed 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 Cognitive needs: No Hearing needs: No Vision needs: No Telehealth Telehealth Telehealth Platform: Telephone Location of provider rendering services: practice address Location of patient: address on file Patient Identification confirmed using: Name, : Yes Telehealth method: voice only Patient verbally consented to treatment: Yes Patient verbally consented to billing insurance company: Yes Patient informed of any privacy concerns related to visit: Yes Minutes spent on Phone/Video with Pt.: 15 Assessment & Plan Assessment & Plan (1) S/P laparoscopic sleeve gastrectomy: Code(s): Z98.84 - Bariatric surgery status Category: Surgical Plan: Patient is doing well. He is very satisfied with his meal plan. Encouraged to continue with cardiovascular activities. He has incorporated body weight exercises as well. We will have him return to the office in approximately 3 months for six-month follow-up. Check six-month follow-up labs at that time. Continue multivitamin. He will text Dr. Mayes if he has any concerns about changing his meal plan.
[2025-03-28 08:18] VITALS: BMI 27.7
== END 2025-03-28 09:47 | disposition home or self-care (01) ==
LOC: HO.HBS 09:37
PROVIDERS: PCP Family Medicine; Visit Provider Physician Assistant Surgical
DX: E66.3 Overweight (principal); Z68.27 Body mass index [BMI] 27.0-27.9, adult; Z90.3 Acquired absence of stomach [part of]; Z98.84 Bariatric surgery status
CPT/HCPCS: 98013

== ENCOUNTER 2025-05-13 15:00 | Outpatient (AMB) | payer OTHER, SELFPAY ==
--- NOTE | 2025-05-13 15:14 | A.OFFVIS_ITS ---
Intake Visit Reasons: vasectomy Intake Note: Patient is present for VASECTOMY Urology Medication:NONE Antibiotic Allergy:NONE Blood Thinner:NONE Cadet Deck Required: No Accompanied by: Self / Same As Patient Allergies No Known Allergies Allergy (Verified 05/13/25 15:20) HPI Comments Details: Petey is a very pleasant male. He is a patient of Dr. Muñiz. He is seen for the following urologic condition - anxiety about health - Vasectomy procedure Vasectomy procedure The patient presents for vasectomy procedure. He is currently He has fathered - 2 child, with a single partner. The youngest child is - 3 years old. His partner is aware and permissive for a vasectomy Current form of control is barrier. 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 [facility] Medical History BMI 34.0-34.9,adult ADHD Marijuana use Morbid obesity Acute eczema Surgical History S/P laparoscopic sleeve gastrectomy History of esophagogastroduodenoscopy (EGD) Family History Father Substance abuse in family Social History Household Members: None Both parents involved: No Caregiver staying overnight: No Housing: House Are you a primary career placement services counselor to a significant other at home: No Do you presently have visiting nurse or other home services: No 75 years or older and lives alone: No Alcohol intake: never Patient Tobacco Use Status: Never used Tobacco e-Cigarette/Vaping Use: Never Used Substance Use Type: Marijuana Special ladarius needs: No service: No Current occupational status: employed 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 Cognitive needs: No Hearing needs: No Vision needs: No Review of Systems Const Denies chills and Denies fever(s) Card Reports no additional complaints and Denies syncope Resp Denies cough GI Denies abdominal pain and Denies heartburn Reports as per HPI and Denies change in libido Neuro Denies syncope Psych Denies change in libido Endo Denies change in libido Physical Exam Const General: cooperative, healthy appearing, comfortable and no acute distress Orientation/consciousness: patient oriented x3 HEENT Face and sinus: Yes normal facial exam Mouth: moist mucous membranes Neck Neck: Yes normal visual inspection, Yes full ROM and Yes trachea midline Chest Chest palpation & inspection: normal inspection of the chest Resp Effort & Inspection: normal respiratory effort, able to speak in complete sentences and no respiratory distress GI Inspection: Yes normal to inspection Back/Spine/Pelvis Cervical Spine: normal cervical lordosis Thoracic/Lumbar Spine: thoracic and lumbar spine normal to inspection Skin General skin exam: no rashes or lesions noted Neuro General: patient oriented x3, gait normal, tone normal and moves all extremities Extrem General: Yes normal to inspection and Yes capillary refill normal Office Procedures Vasectomy Details: Preoperative diagnosis: Anxiety regarding Postoperative diagnosis: Anxiety regarding unplanned Procedure: Bilateral vasectomy Informed consent had been completed. Preoperative and postoperative instructions were provided to the patient. The patient has transportation to home identified at the completion of the procedure. Anti-anxiolytic prescription medication had been taken after consent verification and all questions answered. Tylenol with Codeine pain medication was also provided. The penis was elevated using a rubber band that was attached to the patient's shirt. Both vasa were palpated through the skin using a 3 finger technique and the penoscrotal junction was prepped with Betadine. After Betadine application the left vas was elevated using a 3 finger grasping technique. 1% lidocaine was used to create a subdermal bubble. Further anesthetic was then advanced using the 25-gauge needle along the vasa in a proximal fashion. Approximately 2 minutes were allowed to for local anesthetic uptake. Using the sharp spreading instrument the scrotal skin was spread longitudinally in line with the vasa until the subdermal layer had been divided. The vasa was then elevated from the scrotum using a ring clamp. Care was taken to elevate the superior portion of the vasa by rotating the ring clamp in a caudad direction. The battery powered cautery was used to divide the vasal sheath in a longitudinal direction on the exposed vasa and to strip the vasal sheath from the vasa. A 2nd narrower ring clamp was placed on the exposed vas and used to lift the vas from the vasal sheath. so it grasped the elevated vas. The cautery was used to divide vasal attachments and allow full exposure of a small loop of vasa. The sharp spreading instrument was then used to create a tunnel under the vasa and spread to allow the blood vessels of the vasa to retract from the vasa. A mosquito clamp was placed on the proximal portion of the vas. The battery- powered cautery was used to make a partial division in the proximal vas and then inserted in order to cauterize the proximal end of the vas. This was then cut and allowed to retract into the vasal sheath. The mosquito was then used to twist the vasa 180 degrees creating a fascial interposition. Using a 4-0 chromic suture the fascial interposition was sutured closed. The distal portion of the vas was then cut in order to obtain a segment of vasa. The vasa were allowed to retract back into the scrotum. A small snap was then used to approximate the skin edges and allow hemostasis without placement of a suture. A similar procedure was repeated on the right side. He tolerated the procedure well. Triple antibiotic was applied. A gauze was applied. An ice pack was applied to assist with minimizing swelling. Postoperative instructions were confirmed. He understands the need to continue to use control methods. A semen sample should be brought for inspection under the microscope in 10-12 weeks. CPT 18776 Vasectomy performed by: Osei Fitzpatrick Time out checklist: patient, procedure, site marked/identified, positioning of patient, supplies available, allergies confirmed and team agrees on procedure Anesthetic used: other Specimens: vas segments not sent to pathology 27320 - Vasectomy Office Meds lidocaine (PF) 10 mg/mL (1 %) injection solution Performing Provider: Osei Fitzpatrick MD [facility] Administered by: Kelsie El RN on 05/13/25 15:14 Dose Route Admin Location Dispensed Lot Number Expiration Date [facility] Denture Processor 2 mL Infiltration 10 mL Total Dispensed Waste 10 mL 0 % Assessment & Plan Assessment & Plan (1) Anxiety about health: Code(s): R45.89 - Other symptoms and signs involving emotional state Category: Medical Plan Three-month follow-up semen analysis Orders: Orders AMB Vasectomy Today Z30.09 - Encounter for other general counseling and advice on contraception Patient Instructions: This note is constructed using voice recognition software. While every effort has been made to ensure accuracy manager wellness errors may have been included. Imaging studies, laboratory and physical exam results were discussed and reviewed in detail. No major barriers to patient understanding were identified. An opportunity to ask questions regarding the treatment plan was provided. All questions were answered. The patient expressed understanding and agreement with the above treatment plan. The patient is aware they should contact our office by phone for worsening of their current condition or the appearance of new urologic symptoms. Compliance is encouraged with any medications and followup testing that is ordered. It is a privilege to participate in the urologic care of your patient. If you have any questions or concerns regarding treatment for the above conditions, or other urologic issues, please do not hesitate to contact me. The office te jimmy contact is [phone]. Sincerely, Dr Osei Fitzpatrick MD, [facility] - Urology Compassionate Specialist Care for the Genitourinary System Coding Level of Care Code Procedure Only Diagnoses Anxiety about health R45.89 CPT Codes Office Procedure - CPT: 10861 - Vasectomy ([id number])
== END 2025-05-13 16:19 | disposition home or self-care (01) ==
LOC: HO.HUSH 15:00
PROVIDERS: PCP Family Medicine; Visit Provider Urology
DX: Z30.2 Encounter for sterilization (principal); R45.89 Other symptoms and signs involving emotional state
CPT/HCPCS: 55250

== ENCOUNTER → 2025-05-13 15:00 | Outpatient (BNVA) | payer OTHER, SELFPAY | PROVIDERS: PCP Family Medicine; Visit Provider Urology | DX: Z30.2 Encounter for sterilization (principal); R45.89 Other symptoms and signs involving emotional state | CPT/HCPCS: 55250; J2003 ==

== ENCOUNTER 2025-05-16 11:29 | Outpatient (AMB) | payer OTHER, SELFPAY ==
--- NOTE | 2025-05-16 11:33 | MHC.PC.OV ---
Vital Signs 05/16/25 11:38 Height 6 ft 2 in Weight 214 lb 2 oz BMI 27.5 BP 110/86 Blood Pressure Location Lt brachial Position Sitting Respiration 15 Pulse 74 Pulse Source Pulse Oximeter Temp 97.9 F Temp Source Temporal Artery Scan Pulse Oximetry (%) 95 Oxygen Delivery Method Room Air Intake Visit Reasons: [address] Jessenia cano Prediabetes franklin from 02/10 Intake Note: Petey presents in the office today for a 6 month follow up to prediabetes. Allergies No Known Allergies Allergy (Verified 05/16/25 11:36) Medication List - Last Reconciled 05/16/25 by Gregory Muñiz MD dextroamphetamine-amphetamine 10 mg (Adderall) 10 mg PO BID 30 days triamcinolone acetonide 0.1% 1 appl topical BID varenicline tartrate (Chantix Starting Month Box) PO PER PKG DIR Tobacco use date assessed: 05/16/25 Dental Screening Dental Screen Date: 05/16/25 Did you have a dental visit in the last 12 months?: Yes Did you have a dental problem in the last 6 months where you did not have access to dental care?: No Was dental information given to patient?: Patient has dentist HPI [address] Jessenia cano Prediabetes franklin from 02/10 HPI Details 39 y/o male presents to f/u pre-diabetes. S/p laparoscopic sleeve gastrectomy. A1c today 5.3%. Reports ongoing vaping. He is on Adderall 10mg b.i.d. for ADHD. Denies any issues with his med regimen. Complaints of bilateral shoulder pain. Also has complaints of R groin pain. [facility] Medical History BMI 34.0-34.9,adult ADHD Marijuana use Morbid obesity Acute eczema Surgical History S/P laparoscopic sleeve gastrectomy History of esophagogastroduodenoscopy (EGD) Family History Father Substance abuse in family Social History (Updated 05/16/25 @ 11:38 by Monica Rivers MA) Household Members: None Both parents involved: No Caregiver staying overnight: No Housing: House Are you a primary landcare facilitator to a significant other at home: No Do you presently have visiting nurse or other home services: No 75 years or older and lives alone: No Alcohol intake: never Patient Tobacco Use Status: Never used Tobacco e-Cigarette/Vaping Use: Never Used Second Hand Smoke Exposure: No Use of substances other than those prescribed or required for medical reasons: Yes Substance Use Type: Marijuana Special ladarius needs: No service: No Current occupational status: employed 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 Cognitive needs: No Hearing needs: No Vision needs: No Questionnaire Thrive Questionnaire Date Thrive assessed: 11/01/24 I am a: Patient What is your living situation today?: I have a steady place to live Within the past 12 months, did the food you bought not last and you didn't have the money to get more?: Never true Within the past 12 months, did you worry whether your food would run out before you got money to buy more?: Never true Do you have trouble paying for medicines?: No Do you have trouble getting transportation to medical appointments?: No Do you have trouble paying your heating and electricity bill?: No Do you have trouble taking care of your child, family member or friend?: No Do you have trouble with day-to-day activities such as bathing, preparing meals, shopping, managing finances, etc.?: No Are you currently unemployed and looking for a job?: No Are you interested in more education?: No Please select the resources that you would like help with: None Currently or been in a relationship where the following occur: No concerns reported THRIVE Score: 0 YOVANY-7 AMB Questionnaire YOVANY-7 Date YOVANY - 7 assessed: 08/12/24 Source: Developed by Drs. Sabas Barnard, Dayana Chiang, Charles Jonas and colleagues, with an educational salma from [employer]. Review of Systems Const Denies chills, Denies fatigue, Denies fever(s), Denies headache(s) and Denies weakness ENT Denies dizziness and Denies headache(s) Card Denies dyspnea Resp Denies cough, Denies dyspnea, Denies wheezing and Denies other (shortness of breath) Musc Denies numbness and Denies tingling Neuro Denies dizziness, Denies headache(s), Denies numbness, Denies tingling and Denies weakness Psych Denies anxiety and Denies depression Endo Denies fatigue Aller/Immun Denies wheezing Physical exam (Primary Care) Vital Signs: Last Vital Signs Temp 97.9 F 05/16/25 11:38 Pulse 74 05/16/25 11:38 Resp 15 05/16/25 11:38 BP 110/86 05/16/25 11:38 Pulse Ox 95 05/16/25 11:38 Oxygen Delivery Method Room Air 05/16/25 11:38 BMI result Body Mass Index 27.5 Tobacco/Smoking Status: Tobacco use Status Tobacco use date assessed 05/16/25 05/16/25 11:41 Patient Tobacco Use Status Never used Tobacco 05/16/25 11:38 e-Cigarette/Vaping Use Never Used 05/16/25 11:38 Thrive Assessment: Date of Thrive Assessment Date Thrive assessed 11/01/24 05/16/25 11:34 Currently or been in a relationship where the following occur: No concerns reported Const General: well developed; No acute distress Nutritional Appearance: well nourished Orientation/consciousness: patient oriented x3 HENMT Head: Yes normocephalic and Yes atraumatic Eyes General: appearance normal, both eyes and all related structures Pupils: Equal, round and reactive pupils present EOM: EOMs intact bilaterally Resp Effort & Inspection: normal respiratory effort Neuro General: patient oriented x3 and gait normal Cranial nerves: Yes Equal, round and reactive pupils present Psych Affect: normal affect Coding Level of Care Code Est Pt Level 4 (22240) Diagnoses Prediabetes R73.03 S/P laparoscopic sleeve gastrectomy Z98.84 Nicotine dependence F17.200 ADHD (attention deficit hyperactivity disorder) evaluation Z13.39 Shoulder pain M25.519 Right groin pain R10.31 Assessment & Plan Assessment & Plan (1) Prediabetes: Code(s): R73.03 - Prediabetes Category: Medical Plan: A1c 5.3% normal range Patient has lost over 100 lb this year Continue healthy diet and exercise (2) S/P laparoscopic sleeve gastrectomy: Code(s): Z98.84 - Bariatric surgery status Category: Surgical Plan: Doing well Follow-up with the bariatric team as recommended (3) Nicotine dependence: Code(s): F17.200 - Nicotine dependence, unspecified, uncomplicated Category: Medical Plan: Still vaping throughout each day He would like to try Chantix Ordered (4) ADHD (attention deficit hyperactivity disorder) evaluation: Code(s): Z13.39 - Encounter for screening examination for other mental health and behavioral disorders Category: Medical Plan: Taking Adderall as prescribed Medication is efficacious and not causing any adverse effects such as anxiety, appetite suppression or insomnia Continue current medication (5) Shoulder pain: Code(s): M25.519 - Pain in unspecified shoulder Category: Medical Plan: Bilateral shoulder pain Mildly positive Neer's test at right shoulder Will check an x-ray of right shoulder Start physical therapy (6) Right groin pain: Code(s): R10.31 - Right lower quadrant pain Category: Medical Plan Also right groin pain/strain Physical therapy Ice/heat NSAIDs Orders: Orders AMB Hemoglobin A1c Today R73.03 - Prediabetes XR shoulder RT min 2V Today M25.519 - Pain in unspecified shoulder PT Evaluation and Treatment Today M25.519 - Pain in unspecified shoulder, R10.31 - Right lower quadrant pain Medications: New varenicline tartrate (Chantix Starting Month Box) PO PER PKG DIR 53 ea 0RF
[2025-05-16 11:38] VITALS: BP 110/86; PULSE 74; RESP 15; TEMP 36.6; O2SAT 95; BMI 27.5
== END 2025-05-16 12:09 | disposition home or self-care (01) ==
LOC: HO.HMCFM 11:30
PROVIDERS: PCP Family Medicine; Visit Provider Family Medicine
DX: R73.03 Prediabetes (principal); Z98.84 Bariatric surgery status; F17.200 Nicotine dependence, unspecified, uncomplicated; Z13.39 Encounter for screening examination for other mental health and behavioral disorders; M25.519 Pain in unspecified shoulder; R10.31 Right lower quadrant pain

== ENCOUNTER → 2025-05-16 11:29 | Outpatient (BNVA) | payer OTHER, SELFPAY | PROVIDERS: PCP Family Medicine; Visit Provider Family Medicine | DX: R73.03 Prediabetes (principal); M25.519 Pain in unspecified shoulder; R10.31 Right lower quadrant pain; F17.210 Nicotine dependence, cigarettes, uncomplicated; Z98.84 Bariatric surgery status; Z13.39 Encounter for screening examination for other mental health and behavioral disorders | CPT/HCPCS: 83036 ==

== ENCOUNTER 2025-07-09 09:18 | Outpatient (AMB) | payer OTHER, SELFPAY ==
--- NOTE | 2025-07-09 09:19 | MHC.OFFVISWM ---
VS Expanded 07/09/25 09:21 Height 6 ft 2 in Weight 208 lb BMI 26.7 Intake Visit Reasons: TV PO LSG 12/19/24 Allergies No Known Allergies Allergy (Verified 05/16/25 11:36) Medication List - Last Reconciled 07/09/25 by GRZEGORZ Dillon dextroamphetamine-amphetamine 10 mg (Adderall) 10 mg PO BID 30 days triamcinolone acetonide 0.1% 1 appl topical BID varenicline tartrate (Chantix Starting Month Box) PO PER PKG DIR HPI Comments Details: This a 39 yo male who is s/p LSG without hiatal hernia repair on 12/19/2024. Presents for 6 month post op visit. Weight today is 208 pounds, with a BMI of 26.7. Initial weight 320.1 pounds starting the program on 08/28/2024 and operative weight 274.3 pounds. No complaints of nausea, emesis, abdominal pain or reflux. Reports infrequent but normal bowel movements every 2-3 days and uses stool softeners regularly. He reports that over the last 2 months he got stuck at around 212lb. He decided to buckle down and increase exercise. He also became more diligient with protein intake. However during this time he lost 4lb of muscle. He took a break from intense exercise after undergoing a vasectomy. Dr Farrell told him to continue with same diet. Present meal plan includes: [employer] powdered shake 24 gm x 2-3 per day meal with 4 forks protein and 4 forks veg Drinking 64 oz water daily Exercise routine includes: rowing machine 5 days per week at least 400 calories per session- sometimes up to 1200 body weight exercises - squat, push up, plank Have you been diagnosed with reflux (GERD)? Score 0-5: 0=no symptoms, 1=noticeable but not bothersome (slight or occasional), 2=noticeable, bothersome but not daily, 3=bothersome and daily, 4=affects daily activities, 5=incapacitating, unable to do daily activities How bad is the heartburn: 0 Heartburn when lying down: 0 Heartburn when standing up: 0 Heartburn after meals: 0 Does heartburn change your diet: 0 Does heartburn wake you up from sleep: 0 Do you have difficulty swallowin Do you have pain with swallowin If you take medication for reflux, does this affect your daily life: 0 Total score: 0 PFSH Medical History BMI 34.0-34.9,adult ADHD Marijuana use Morbid obesity Acute eczema Surgical History S/P laparoscopic sleeve gastrectomy History of esophagogastroduodenoscopy (EGD) Family History Father Substance abuse in family Social History (Updated 05/16/25 @ 11:38 by Monica Rivers MA) Household Members: None Both parents involved: No Caregiver staying overnight: No Housing: House Are you a primary healthcare administrative assistant to a significant other at home: No Do you presently have visiting nurse or other home services: No 75 years or older and lives alone: No Alcohol intake: never Patient Tobacco Use Status: Never used Tobacco e-Cigarette/Vaping Use: Never Used Second Hand Smoke Exposure: No Substance Use Type: Marijuana Special ladarius needs: No service: No Current occupational status: employed 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 Cognitive needs: No Hearing needs: No Vision needs: No Telehealth Telehealth Telehealth Platform: Telephone Location of provider rendering services: practice address Location of patient: address on file Patient Identification confirmed using: Name, : Yes Telehealth method: voice only Patient verbally consented to treatment: Yes Patient verbally consented to billing insurance company: Yes Patient informed of any privacy concerns related to visit: Yes Minutes spent on Phone/Video with Pt.: 16 Assessment & Plan Assessment & Plan (1) S/P laparoscopic sleeve gastrectomy: Code(s): Z98.84 - Bariatric surgery status Category: Surgical (2) Overweight: Code(s): E66.3 - Overweight Category: Medical Plan Continue meal plan as above. Recommended trying 3 shakes per day in addition to meal to ensure adequate protein intake, especially considering his high level of activity. We discussed that he has healthy body fat % of 13%. Labs ordered. RTC 3mo TV. Orders: Orders Hemoglobin A1c Today E66.3 - Overweight, Z98.84 - Bariatric surgery status Lipid Panel Today E66.3 - Overweight, Z98.84 - Bariatric surgery status Zinc Today E66.3 - Overweight, Z98.84 - Bariatric surgery status Comprehensive Met. Panel Today E66.3 - Overweight, Z98.84 - Bariatric surgery status Vitamin B1 Today E66.3 - Overweight, Z98.84 - Bariatric surgery status Insulin Today E66.3 - Overweight, Z98.84 - Bariatric surgery status Complete Blood Count Auto Diff Today E66.3 - Overweight, Z98.84 - Bariatric surgery status IRON PROFILE Today E66.3 - Overweight, Z98.84 - Bariatric surgery status Vitamin B12 and Folate Today E66.3 - Overweight, Z98.84 - Bariatric surgery status C Reactive Protein Today E66.3 - Overweight, Z98.84 - Bariatric surgery status Vitamin A Today E66.3 - Overweight, Z98.84 - Bariatric surgery status Vitamin D 25-OH Total Today E66.3 - Overweight, Z98.84 - Bariatric surgery status Ferritin Today E66.3 - Overweight, Z98.84 - Bariatric surgery status TSH reflex Free T4 Today E66.3 - Overweight, Z98.84 - Bariatric surgery status
[2025-07-09 09:21] VITALS: BMI 26.7
== END 2025-07-09 09:46 | disposition home or self-care (01) ==
LOC: HO.HBS 09:18
PROVIDERS: PCP Family Medicine; Visit Provider Physician Assistant Surgical
DX: E66.3 Overweight (principal); Z68.26 Body mass index [BMI] 26.0-26.9, adult; Z90.3 Acquired absence of stomach [part of]; Z98.84 Bariatric surgery status
CPT/HCPCS: 98014

== ENCOUNTER 2025-07-22 09:13 | Outpatient (REF) | payer OTHER, SELFPAY | END 2025-07-22 09:14 | disposition home or self-care (01) | LOC: HO.XRAY 09:13 | PROVIDERS: PCP Family Medicine; Visit Provider Family Medicine | DX: Z13.89 Encounter for screening for other disorder (principal) ==

== ENCOUNTER 2025-08-19 10:29 | Outpatient (RCR) | payer OTHER, SELFPAY ==
--- NOTE | 2025-06-06 12:53 | MHC.PT.EP ---
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 HE HAS A H/O BARIATRIC SURGERY W A 130 LB WT LOSS SINCE SEP 2022. OBJECTIVE FINDINGS: DECR POSTURAL AWARENESS, DECR PROPRIOCEPTIVE FB IN NANCY SH COMPLEX, (+) LUMBOPELVIC ASYMM, STRENGTH DEFICITS IN POSTERIOR RC/ SCAP MM, DECR ROM NANCY SH, AND FLUCTUATING PAIN IN HER SHOULDERS -> INEFFICIENT CORE ENGAGEMENT/ TRUNK STABILIZATION-> WE DISCUSSED PT POC AND THE Pt AGREES AND WOULD LIKE TO PROCEED ACCORDINGLY Frequency and Duration: The patient will be seen 2 x WK x 5 WKS Short Term Goals: COMPLETE ASSESSMENT OF Rt GROIN DECR SH PAIN TO 2-3/10, Rt GROIN/ HS INSERT SXS TO 2-3/10 INITIATE HEP IMPROVE POSTURAL AWARENESS AND SELF CORRECTION Senior Living Goals: Pt INDEP HEP AND SELF SX MGMT TECHN IMPROVED SPADI, AT EVAL 83/130 IMPROVED NANCY SH STRENGTH/ SCAP MM ACTIV/ STABILIZATION IMPROVED CORE ENGAGEMENT EVIDENT W WFL LUMBOPELVIC SYMM IMPROVED HAMSTRING AND HIP ROTAT FLEXIB Treatment Plan: Modalities to reduce pain, spasms and effusion. Manual therapy to restore motion and function. Therapeutic exercise to improve strength and flexibility. Neuromuscular re-education for posture and balance. Therapeutic activities to return to functional activities of daily living. Electronically signed by: IRVIN FLOR,PT Please sign and return to therapist. Thank you for your referral.
--- NOTE | 2025-08-19 11:08 | MHC.PT.DC ---
[facility] [place] Office [place] Office [place] Office [address] Warner Day [address] [phone] F: [phone] F: [phone] F: [phone] F: [phone] Physical Therapy Discharge Report Diagnosis: RIGHT SHOULDER > LEFT SH; Rt GROIN PAIN Date of Surgery: Date of Evaluation: 06/06/25 Date of Discharge: 08/19/25 Treatments to Date: 6 Cancellations to Date: 2 No Shows to Date: Discharge Status: Achieved Goals Improved Function Independent with HEP Discharge Summary: DARSHANA HAS MADE SIGNIF PROGRESS IN PT- HE HAS MET HIS PT GOALS AT THIS TIME AND IS READY FOR D/C W HIS HEP-> WFL SH AND HIP AROM , IMPROVED STRENGTH NANCY SH GIRDLES, AND HE HAS BEEN ABLE TO RESUME REG ADLs, EXER. HIS SPADI SCORE AT EVAL WAS 83/130, AND,TODAY AT D/C, 13/130. THE Pt IS PLEASED W HIS PROGRESS AND SX RESOLUTION. Electronically signed by: IRVIN FLOR,PT Please sign and return to therapist. Thank you for your referral.
== END 2025-08-19 11:14 | disposition home or self-care (01) ==
LOC: HO.PT 10:29
PROVIDERS: PCP Family Medicine; Visit Provider Family Medicine
DX: R10.31 Right lower quadrant pain (principal); M25.519 Pain in unspecified shoulder
CPT/HCPCS: 97110; 97112; 97140; 97162; 97530